=== PATIENT | male | born 1950 | race Two or more races ===

== ENCOUNTER 2025-05-28 09:58 | Inpatient (IN) | payer MEDICARE, MEDICAID, SELFPAY ==
[2025-05-28] VITALS (10 sets, daily range): BP systolic 164–189; BP diastolic 84–105; PULSE 63–78; RESP 16–97; TEMP 36.6–37; O2SAT 95–99; BMI 22.1
--- NOTE | 2025-05-28 10:04 | EKG_ITS ---
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
--- NOTE | 2025-05-28 10:59 | XR_ITS ---
Examination: CT brain head without contrast. 2-D sagittal coronal reconstructions Date and time of exam:May 28, 2025 1125 hours Comparison July 22, 2024 INDICATIONS: Stroke history 24 hours ago, generalized weakness beginning 4 hours ago CTDI: vol (mGy):48.7 DLP: (mGycm):1025 Technique: Multiple CT axial sections of the brain have been obtained, 5 mm slice thickness. Contrast has not been administered. 2-D sagittal, coronal reconstructions have been obtained Low dose protocols were performed. One or more of the following dose reduction techniques were used; automated exposure control, adjustment of the mA and/or KV according to patient size, use of iterative reconstruction technique. Findings: No significant ventricular enlargement. Shunt stable position Prominent venous channels in the subarachnoid space Large area of encephalomalacia in the left temporal lobe with adjacent craniotomy defect, aneurysm clip and presumed embolization material Intra-axial or extra-axial hemorrhage density is not seen. No mass effect or midline shift Basal cisterns are not remarkable. Fourth ventricle is midline. Impression: Extensive chronic changes again noted No interval hemorrhage or mass effect
--- NOTE | 2025-05-28 10:59 | XR_ITS ---
Examination: CTA carotids with intravenous contrast CTA brain, head with intravenous contrast. 2-D sagittal, coronal reconstructions. 3-D reconstructions. Exam date and time: May 28, 2025 1535 hours INDICATIONS: Increasing dizziness and falls 3 weeks, confusion, history ventricular peritoneal shunts CTDI: vol (mGy) 11.5 DLP: (mGycm) 479 Technique: Multiple CTA axial brain, head carotid images post intravenous contrast injection 75 cc, Isovue-370. 2-D sagittal, coronal reconstructions. 3-D reconstructions, 3-D post processing including vascular maximum intensity projection images. Low dose protocols were performed. One or more of the following dose reduction techniques were used; automated exposure control, adjustment of the mA and/or KV according to patient size, use of iterative reconstruction technique. Findings: Multiple thyroid nodules, the largest in the left lobe 17 mm No significant common carotid carotid bifurcation or internal carotid artery stenoses Dominant right vertebral artery Left vertebral artery is small but no critical stenoses No significant filling of the intracranial portion of the left vertebral artery The basilar artery and posterior cerebral branches fill with no occlusions Juxtasellar supraclinoid portions internal carotid arteries fill as well as M1 segments and middle cerebral artery vessels Anterior cerebral arteries demonstrate no occlusions IMPRESSION: No significant carotid artery stenoses in the neck Left vertebral artery is atretic and does not fill in the intracranial portion of its course, recommend carotid vertebral Doppler sonography follow-up to assess for retrograde flow in the left vertebral artery Basilar artery posterior cerebral branches, middle cerebral and anterior cerebral arteries demonstrate no large vessel occlusions or thrombus
--- NOTE | 2025-05-28 11:01 | PD.EDRME ---
Rapid Medical Screening Exam E Arrival date/time: 05/28/25 09:58 Chief Complaint: General Adult/Misc Complain Vital signs: Vital Signs Temperature 98.6 F 05/28/25 10:36 Pulse Rate 78 05/28/25 10:36 Respiratory Rate 18 05/28/25 10:36 Blood Pressure 171/102 H 05/28/25 10:36 Pulse Oximetry (%) 98 05/28/25 10:36 Oxygen Delivery Method Room Air 05/28/25 10:36 E Narrative: Patient is a 74-year-old male with medical history notable for prior stroke, prior stent placed on his neck vessel, has an emergency primary concerns for weakness, syncopal episode, and forgetting things over the last few weeks. Denies chest pain fevers chills nausea vomiting abdominal pain dysuria hematuria melena bloody stools
[2025-05-28 11:52] LABS: Basophils # (Auto) 0.0 Thou/mm3 (0.0-0.2); Basophils % (Auto) 0 % (0-2.5); Eosinophils # (Auto) 0.0 Thou/mm3 (0.0-0.5); Eosinophils % (Auto) 0 % (0-10); Hematocrit 48.8 % (41.0-53.0); Hemoglobin 17.2 g/dL (13.5-16.0); Immature Granulocytes Auto 0.03 Thou/mm3 (0.00-0.00); Lymphocytes # (Auto) 0.9 Thou/mm3 (1.0-4.8); Lymphocytes % (Auto) 9 % (10-50); Mean Corpuscular HGB Conc 35.2 g/dl (31.0-37.0); Mean Corpuscular Hemoglobin 30.2 pg (25.0-35.0); Mean Corpuscular Volume 86 fL (80-100); Monocytes # (Auto) 0.6 Thou/mm3 (0.0-0.8); Monocytes % (Auto) 7 % (0-12); Neutrophils # (Auto) 8.0 Thou/mm3 (1.8-7.7); Neutrophils % (Auto) 83 % (37-80); Nucleated Red Blood Cell # 0.00 Thou/mm3 (0.00-0.00); Nucleated Red Blood Cell % 0 /100 WBC (0); Platelet Count 181 Thou/mm3 (140-440); RDW Standard Deviation 41.9 fL (35.1-43.9); Red Blood Count 5.69 Miln/mm3 (4.50-5.90); White Blood Count 9.6 Thou/mm3 (3.8-10.6)
[2025-05-28 12:08] LABS: Alanine Aminotransferase 16 U/L (10-49); Albumin, Serum 4.9 gm/dL (3.4-4.8); Albumin/Globulin Ratio 1.8 (1.2-2.2); Alkaline Phosphatase 85 U/L (46-116); Anion Gap 12 (7-16); Aspartate Amino Transferase 17 U/L (0-34); BUN/Creatinine Ratio 7 Ratio (12-20); Bilirubin,Total 2.1 mg/dL (0.3-1.2); Blood Urea Nitrogen 8 mg/dL (9-23); Calcium 10.2 mg/dL (8.3-10.6); Calcium (Corrected) 10.2 mg/dL (8.5-10.1); Carbon Dioxide 28.0 mMol/L (20.0-31.0); Chloride 102 mMol/L (98-107); Creatinine (Component) 1.1 mg/dL (0.6-1.3); Estimated Creatinine Clearance 57.6 mL/min (>60); Globulin 2.8 gm/dL (2.3-3.5); Glucose 98 mg/dL (74-106); Osmolality,Calculated 281 (275-295); Potassium 3.9 mMol/L (3.4-5.1); Sodium 142 mMol/L (136-145); Total Protein 7.7 gm/dL (5.7-8.2); Troponin I 0.021 ng/mL (0.0-0.045); eGFR > 60 See Note
[2025-05-28 12:21] LABS: INR 1.0 (0.9-1.3); Prothrombin Time 11.2 Seconds (9.0-12.2)
[2025-05-28 13:02] LABS: Collection Type, Urine Clean Catch; Squamous Epithelial Cell,Urine 0 /hpf (0-5)
[2025-05-28 13:24] LABS: Bilirubin,Urine Negative (Negative); Blood,Urine Negative (Negative); Clarity,Urine Clear (Clear/Hazy); Color,Urine Yellow (Lt Yel-Yel); Culture Indicated,Urine Not Indicated; Glucose, Urine Negative (Negative); Ketones,Urine Negative (Negative); Leukocyte Esterase,Urine Negative (Negative); Nitrite,Urine Negative (Negative); PH,Urine 6.0 (5.0-7.0); Protein,Urine 1+ (Neg - Trace); RBC,Urine 2 /hpf (0-3); Specific Gravity,Urine 1.028 (1.001-1.035); Urobilinogen,Urine 2.0 mg/dL (0.0-1.0); WBC,Urine 2 /hpf (0-5)
--- NOTE | 2025-05-28 14:21 | EDNOTE_ITS ---
ED Weakness RME/HPI General Chief complaint: General [facility] Complain Stated complaint: NOT EATING x 4 DAYS, RIGHT LEG NOT WORKING Arrival date/time: 05/28/25 09:58 Limitations: no limitations RME / HPI RME / HPI Narrative: DR. RICHARD FREITAS ED EVALUATION: 74-year-old male with past medical history of two prior strokes in the 1989? 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 On Saturday, his right leg gave out, causing a fall. Prior to the fall, he had noticed some dragging of the right leg, but symptoms have since worsened, and he is now unable to ambulate without assistance. Since the fall, his nephew has also o bserved increased confusion, decreased appetite, and significant weight loss of approximately 25?30 pounds over the past three years. The patient denies chest pain, fevers, chills, nausea, vomiting, abdominal pain, dysuria, hematuria, melena, or bloody stools. No headaches or facial droop reported. Related Data Home Medications ?Medication ?Instructions ?Recorded ?Confirmed atorvastatin 40 mg tablet 40 mg PO QDAY 05/30/2305/30 gabapentin 600 mg tablet 600 mg PO BID 05/30/2305/30 metoprolol succinate 50 mg 50 mg PO QDAY 05/30/2305/08 tablet,extended release 24 hr Allergies Allergy/AdvReac Type Severity Reaction Status Date / Time No Known Allergies Allergy Verified 05/28/25 10:02 Review of Systems Review of Systems Systems Reviewed: All systems reviewed, normal except as documented Past Medical History Past Medical History NEUROLOGIC: Positive Neurological Disorders (Aneurysm) and Cerebrovascular Accident CARDIAC: Positive Hypertension Social History SMOKING STATUS: Never smoker SUBSTANCE USE: does not use and marijuana ALCOHOL: Never ED Exam General Limitations: Present no limitations General appearance: Present alert and in no apparent distress Head Head exam: Present atraumatic, normocephalic and normal inspection Eye Eye exam: Present normal appearance, PERRL and EOMI ENT ENT exam: Present normal exam, normal oropharynx and mucous membranes moist Neck Neck exam: Present normal inspection, full ROM and trachea midline Chest Chest inspection: Present normal inspection and symmetric chest wall rise Respiratory Respiratory exam: Present normal lung sounds bilaterally Cardiovascular Cardiovascular exam: Present regular rate, normal rhythm and normal heart sounds Abdominal Exam Abdominal exam: Present soft and normal bowel sounds Extremities Exam Extremities exam: Present normal inspection and full ROM Back Exam Back exam: Present normal inspection and full ROM Neurological Exam Neurological exam: Present alert, oriented X3 and other (inability to dorsiflex right foot) Expanded Neurological Exam Motor strength - LUE: 5/5 Motor strength - RUE: 4/5 Motor strength - LLE: 5/5 Motor strength - RLE: 3/5 Psychiatric Psychiatric exam: Present normal affect and normal mood Skin Skin exam: Present warm, dry, intact and normal color Course Course Course Narrative: Patient is a 74-year-old male with history of hypercholesterolemia, hypertensi on, 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 Patient has required assistance to ambulate for the past 4 days. Patient's exam was notable for right lower extremity weakness and mild confusion. Stroke workup was initiated including CT head and CTA head and neck. CTA head and neck showed: No significant carotid artery stenoses in the neck. Left vertebral artery is atretic and does not fill in the intracranial portion of its course, recommend carotid vertebral Doppler sonography follow-up to assess for retrograde flow in the left vertebral artery. Basilar artery post erior cerebral branches, middle cerebral and anterior cerebral arteries demonstrate no large vessel occlusions or thrombus My read of the CT non-con head: No bleed. Blood work was basically normal save for mild hypokalemia. The remainder of the workup was reassuring. Patient's vital signs stayed stable and normal throughout safe for some mild hypertension. I spoke with the resident for Dr. Ferro and the team came down and evaluated the patient. They requested a telemetry neuro consult. I ordered that and calls were made, however care of the patient was turned over to Dr. No pending that eval. Quality Measures none Orders Category Date Time Status CT Screening NOW Care 05/28/25 11:00 Active EKG (ED ONLY) *Do not use* NOW Care 05/28/25 10:04 Completed MRI Screening NOW Care 05/28/25 20:10 Active NIH Stroke Scale now Care 05/28/25 17:24 Active Consult to Neurology / Tele-Neurology Routine Cons 05/28/25 17:[address] angio carotid w head w Stat Exams 05/28/25 10:[address] head/brain wo con Stat Exams 05/28/25 10:59 Completed EKG (ED Only) Stat Exams 05/28/25 10:04 Draft MR head/brain wo con Urgent Exams 05/28/25 Ordered Bilirubin,Direct Routine Lab 05/28/25 21:10 Completed CBC Stat Lab 05/28/25 11:30 Completed CMP [Comprehensive Metabolic Panel] Stat Lab 05/28/25 11:30 Completed PT [Prothrombin Time with INR] Stat Lab 05/28/25 11:30 Completed Troponin I Stat Lab 05/28/25 11:30 Completed UA, C/S IF [Urinalysis, C/S if Indicated] Stat Lab 05/28/25 12:45 Completed Aspirin Chew Med 05/28/25 20:10 Discontinued 81 mg PO X1 ONE hydrALAZINE INJ [Apresoline Inj] Med 05/28/25 15:24 Discontinued 10 mg IVP X1 ONE Vital Signs Vital signs: Vital Signs Temperature 98.6 F 05/28/25 10:36 Pulse Rate 78 05/28/25 10:36 Respiratory Rate 18 05/28/25 10:36 Blood Pressure 171/102 H 05/28/25 10:36 Pulse Oximetry (%) 98 05/28/25 10:36 Oxygen Delivery Method Room Air 05/28/25 10:36 Weakness MDM Narrative MDM Narrative:: I, Bozena Gutiérrez, am scribing for and in the presence of Dr. Pollack. Patient data External records reviewed:: [facility] previous records Clinical information provided by:: patient and family (nephew) Social determinants that could affect healthcare access:: none Patient has the following chronic illnesses:: two prior strokes in the 90?s without residual deficits, a stent placed in the neck vessel, hypertension, hyperlipidemia, and a shunt placed in [place] How is presenting disease/condition affected by chronic disease/condition?: exacerbated by Evaluation data The following diagnostics were reviewed and interpreted by me:: lab results, radiology exam(s) and EKG tracing(s) (My interpretation: EKG performed at xx hours, normal sinus rhythm, rate 76, left axis deviation, Q waves in lead 3 and AVF, no ectopy, no STEMI) Lab and/or radiology exams considered but not ordered:: none Interpretation Summary: Procedure(s): CT head/brain wo con Accession Number(s): [id number] cc: Bud Hutchison MD; Jonna Souza NP; Sofiya Hutchinsno MD~ Examination: CT brain head without contrast. 2-D sagittal coronal reconstructions Date and time of exam:May 28, 2025 1125 hours Comparison July 22, 2024 INDICATIONS: Stroke history 24 hours ago, generalized weakness beginning 4 hours ago CTDI: vol (mGy):48.7 DLP: (mGycm):1025 Technique: Multiple CT axial sections of the brain have been obtained, 5 mm slice thickness. Contrast has not been administered. 2-D sagittal, coronal reconstructions have been obtained Low dose protocols were performed. One or more of the following dose reduction techniques were used; automated exposure control, adjustment of the mA and/or KV according to patient size, use of iterative reconstruction technique. Findings: No significant ventricular enlargement. Shunt stable position Prominent venous channels in the subarachnoid space Large area of encephalomalacia in the left temporal lobe with adjacent craniotomy defect, aneurysm clip and presumed embolization material Intra-axial or extra-axial hemorrhage density is not seen. No mass effect or midline shift Basal cisterns are not remarkable. Fourth ventricle is midline. Impression: Extensive chronic changes again noted No interval hemorrhage or mass effect Dictated By: Bud Hutchison MD Procedure(s): CT angio carotid w head w Accession Number(s): [id number] cc: Bud Hutchison MD; Jonna Souza NP; Sofiya Hutchinson MD~ Examination: CTA carotids with intravenous contrast CTA brain, head with intravenous contrast. 2-D sagittal, coronal reconstructions. 3-D reconstructions. Exam date and time: May 28, 2025 1535 hours INDICATIONS: Increasing dizziness and falls 3 weeks, confusion, history ventricular peritoneal shunts CTDI: vol (mGy) 11.5 DLP: (mGycm) 479 Technique: Multiple CTA axial brain, head carotid images post intravenous contrast injection 75 cc, Isovue-370. 2-D sagittal, coronal reconstructions. 3-D reconstructions, 3-D post processing including vascular maximum intensity projection images. Low dose protocols were performed. One or more of the following dose reduction techniques were used; automated exposure control, adjustment of the mA and/or KV according to patient size, use of iterative reconstruction technique. Findings: Multiple thyroid nodules, the largest in the left lobe 17 mm No significant common carotid carotid bifurcation or internal carotid artery stenoses Dominant right vertebral artery Left vertebral artery is small but no critical stenoses No significant filling of the intracranial portion of the left vertebral artery The basilar artery and posterior cerebral branches fill with no occlusions Juxtasellar supraclinoid portions internal carotid arteries fill as well as M1 segments and middle cerebral artery vessels Anterior cerebral arteries demonstrate no occlusions IMPRESSION: No significant carotid artery stenoses in the neck Left vertebral artery is atretic and does not fill in the intracranial portion of its course, recommend carotid vertebral Doppler sonography follow-up to assess for retrograde flow in the left vertebral artery Basilar artery posterior cerebral branches, middle cerebral and anterior cerebral arteries demonstrate no large vessel occlusions or thrombus Dictated By: Bud Hutchison MD Medications / Prescriptions Medications or Prescriptions considered but not ordered:: none Medication administrations:: Medication Administration History Acetaminophen (Acetaminophen 325 Mg Tablet) 650 mg PO Q6H PRN PRN Reason: Fever >100.3 or mild pain 1-3 Stop: 06/27/25 21:08 Aspirin (Aspirin Ec 81 Mg Tabec) 81 mg PO QDAY GLORIA Stop: 06/28/25 08:59 Atorvastatin Calcium (Atorvastatin Calcium 20 Mg Tablet) 40 mg PO HS GLORIA Stop: 06/28/25 20:59 Famotidine (Famotidine 20 Mg Tablet) 20 mg PO BID GLORIA Stop: 06/28/25 08:59 Heparin Sodium (Porcine) (Heparin Sod Inj 5000 Unit/Ml Vial) 5,000 unit SC Q12HR GLORIA Stop: 06/12/25 08:59 Sodium Chloride (Ns) 1,000 mls @ 70 mls/hr IV .[id number] ONE Stop: 05/29/25 11:46 Last Admin: 05/28/25 22:24 Dose: 70 mls/hr Documented By: HARRIS Labetalol HCl (Labetalol Inj 5 Mg/Ml Vial 20 Ml) 10 mg IVP Q6HR PRN PRN Reason: Hypertension Stop: 06/27/25 21:18 Ondansetron HCl (Ondansetron Inj 2 Mg/Ml Inj 2 Ml) 4 mg IVP Q6H PRN; Protocol PRN Reason: NAUSEA OR VOMITING Stop: 06/27/25 21:08 Sennosides (Senna Tablet) 1 tab PO QDAY GLORIA; Protocol Stop: 06/28/25 08:59 Discontinued Medications Aspirin (Aspirin 81 Mg Chew) 81 mg PO X1 ONE Stop: 05/28/25 20:11 Last Admin: 05/28/25 20:17 Dose: 81 mg Documented By: HARRIS Hydralazine HCl (Hydralazine Inj 20 Mg/Ml Vial) 10 mg IVP X1 ONE Stop: 05/28/25 15:25 Last Admin: 05/28/25 16:07 Dose: 10 mg Documented By: HARRIS see above if any Consultations Consultation(s) initiated? (list below): Yes Consultation #1 (Physician, Specialty, Details): Discussed test HPI, PMHx, lab, radiology results and/or management with resident working with the hospitalist. They are requesting a neurology consult. Time: 17:00 Diagnosis Weakness Differential Diagnosis: other (Acute ischemic stroke, transient ischemic attack, and shunt malfunction or other intracranial pathology.) Most likely diagnosis given after review of the tests above:: CVA Admission Indicated Admission indicated?: indicated Admission Request Was there a request for admission?: Yes Admission Attestation Admission request attestation: Discussed case with [] from Hospitalist service regarding admission. Discussed patients ED course, exam findings, labs, and radiology results. The Hospitalist [agrees,declines] to accept the patient for admission. Disposition Plan Disposition Plan: other (specify) (Patient signed out to Dr. No, pending a neurology consult for possible admission.) Critical Care Time Critical Care Time Critical Care Time: Yes Total Critical Care Time (min.): 40 Attestation: The high probability of sudden, clinically significant deterioration in the patient?s condition required the highest level of my preparedness to intervene urgently. The services I provided to this patient were to treat and/or prevent clinically significant deterioration. Services included the following: chart data review, reviewing nursing notes and/or old charts, documentation time, labor relations consultant collaboration regarding findings and treatment options, medication orders and management, direct patient care, vital sign assessments and ordering, interpreting and reviewing diagnostic studies and lab tests. Aggregate critical care time includes only time during which I was engaged in work directly related to the patient?s care, as described above, whether at bedside or elsewhere in the Emergency Department. It did not include time spent performing other reported procedures or the services of residents, students, nurses or physician assistants. Discharge Plan Problem List Clinical Impression: CVA (cerebral vascular accident)
[2025-05-28] MEDS: hydrALAZINE INJ 20 MG/ML VIAL 10 MG IVP (16:07)
--- NOTE | 2025-05-28 18:30 | PD.EDADDENDU ---
Emergency Room Addendum <Celia Rowe - Last Filed: 05/28/25 20:34> Addendum Narrative: 1800: Care assumed from Dr. Pollack (emergency physician). Past medical, surgical, social and family history reviewed. Vitals and home medications reviewed. Results and treatment plan discussed. I will assume the care of the patient at this time and will follow the patient, pending neurology consult for admission. The following addendum documentation note is intended to reflect any pending information, findings, or radiology results not included in the patient?s initial chart by the previous shift scribe. 2012: Telle-neurologist made aware of the patient?s HPI, PMHx, lab and/or radiology results. Discussed treatment plan. Will consult an admission to the hospitalist. 2030: made aware of the patient?s HPI, PMHx, lab and/or radiology results. Treatment plan was discussed. Will admit for further evaluation and management. Accepts patient for admission. <Joaquín Tan DO [place] - Last Filed: 05/28/25 20:34> Addendum Narrative: 1800: Care assumed from Dr. Pollack (emergency physician). Past medical, surgical, social and family history reviewed. Vitals and home medications reviewed. Results and treatment plan discussed. I will assume the care of the patient at this time and will follow the patient, pending neurology consult for admission. The following addendum documentation note is intended to reflect any pending information, findings, or radiology results not included in the patient?s initial chart by the previous shift scribe. 2012: Tellkranthi-neurologist made aware of the patient?s HPI, PMHx, lab and/or radiology results. Discussed treatment plan. Will consult an admission to the hospitalist. made aware of the patient?s HPI, PMHx, lab and/or radiology results. Treatment plan was discussed. Will admit for further evaluation and management. Accepts patient for admission. Patient was signed out to me awaiting teleneuro consult. Teleneuro consult was obtained with Dr. Silver who does not believe this to be a shunt problem. He asked for the patient to be admitted to the hospital and undergo MRI in the morning. This was conveyed to the admitting team.
[2025-05-28] MEDS: ASPIRIN 81 MG CHEW PO (20:17)
--- NOTE | 2025-05-28 20:19 | PD.TNEURO ---
Tele Neuro Consultation Consultation Date 05/28/25 Most Recent Vital Signs Last Vital Signs Temp 97.9 F 05/28/25 17:50 Pulse 72 05/28/25 20:03 Resp 19 05/28/25 20:03 BP 175/94 H 05/28/25 20:03 Pulse Ox 98 05/28/25 20:03 O2 Del Method Room Air 05/28/25 20:03 Laboratory-Coagulation Panel PT 11.2 Seconds (9.0-12.2) 05/28/25 11:30 INR 1.0 (0.9-1.3) 05/28/25 11:30 Consultation Narrative [facility] TeleNeurology Consult Services Stat Consult Patient Name:???Bud Gonzales Date of :???1950 Identification Number:??? 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 From a Neurology perspective, principal concern would involve either an acute ischemic stroke to the L hemisphere; however, cannot exclude possibility of a recrudescence dany patient's chronic stroke symptoms in context of decreased oral intake since fall. Moving forward, recommend empirically treating as an acute ischemic stroke, with admission for stroke workup alongside metabolic and infectious workup. Of note, while an issue with patient's LIQUID WASTE TREATMENT PLANT OPERATOR shunt is possible, the fact that patient has no evidence of hydrocephalus or enlargement of his L lateral ventricle on CTH, with imaging grossly unchanged as compared to August 2024 CTH, makes likelihood of a LIQUID WASTE T[employer]ATMENT [employer] OPERATOR shunt malfunction extremely low. In the end, would recommend outpatient Neurosurgery follow up post-discharge for future shunt management. Recommendations: Our recommendations are outlined below. Diagnostic Studies :MRI head without contrast Infectious and metabolic workup per primary team Laboratory Studies :Lipid panel, TSH, A1C, B12/Folate levels Antithrombotic Medication :Aspirin 81 mg PO daily Statins for LDL goal less than 70 Anticoagulant Medication :Not indicated Nursing Recommendations :IV Fluids, avoid dextrose containing fluids, Maintain euglycemia Neuro checks q4 hrs x 24 hrs and then per shift Head of bed 30 degrees Continue with Telemetry Consultations :Recommend Speech therapy if failed dysphagia screen Physical therapy/Occupational therapy Inpatient rehab if recommended by physical/occupational therapy DVT Prophylaxis :Choice of Primary Team Disposition :Neurology will follow Miscellaneous :Outpatient Neurosurgery follow up in 4-8 weeks for further monitoring of LIQUID W[employer]E T[employer]AT[employer] OPERATOR shunt Metrics: Dispatch Time: 05/28/2025 17:54:46 Callback Response Time: 05/28/2025 17:55:11 Primary Provider Notified of Diagnostic Impression and Management Plan on: 05/28/2025 20:05:05 CT HEAD: I personally reviewed all the CT images that were available to me and it showed:?a large area of encephalomalacia in the L temporal region consistent with a chronic stroke, with an overlying craniotomy defect as well as a L to R LIQUID W[employer]E T[employer]ATMENT [employer] OPERATOR shunt ImagingCTA Head/neck: 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 Per staff and per family, patient experienced a fall four days prior, after which he was noted to have an inability to ambulate without the assistance of family, with significant unsteadiness and worsening weakness of his R leg as well as more prominent R facial weakness. Per patient, admits to weakness and states that prior to Saturday, he was able to ambulate well with a walker. Denies any recent infectious or illnesses. Of note, patient states that he stopped taking all medications appx one year prior. Past Medical History: ?Hypertension ?Hyperlipidemia ?Stroke ?There is no history of Diabetes Mellitus ?There is no history of Atrial Fibrillation Medications: No Anticoagulant use? No Antiplatelet use Reviewed EMR for current medications Allergies:? Reviewed Social History: Drug Use: No Family History: There is no family history of premature cerebrovascular disease pertinent to this consultation ROS : 14 Points Review of Systems was performed and was negative except mentioned in HPI. Past Surgical History: There Is No Surgical History Contributory To Today?s Visit Examination: BP(164/84),?Pulse(68), 1A: Level of Consciousness - Alert; keenly responsive?+ 0 1B: Ask Month and Age - Both Questions Right?+ 0 1C: Blink Eyes & Squeeze Hands - Performs Both Tasks?+ 0 2: Test Horizontal Extraocular Movements - Normal?+ 0 3: Test Visual Mueller - Partial Hemianopia?+ 1 4: Test Facial Palsy (Use Grimace if Obtunded) - Partial paralysis (lower face)?+ 2 5A: Test Left Arm Motor Drift - No Drift for 10 Seconds?+ 0 5B: Test Right Arm Motor Drift - Drift, but doesn't hit bed?+ 1 6A: Test Left Leg Motor Drift - No Drift for 5 Seconds?+ 0 6B: Test Right Leg Motor Drift - Drift, but doesn't hit bed?+ 1 7: Test Limb Ataxia (FNF/Heel-Veliz) - No Ataxia?+ 0 8: Test Sensation - Normal; No sensory loss?+ 0 9: Test Language/Aphasia - Normal; No aphasia?+ 0 10: Test Dysarthria - Mild-Moderate Dysarthria: Slurring but can be understood?+ 1 11: Test Extinction/Inattention - No abnormality?+ 0 NIHSS Score:?6 NIHSS Free Text :?partial R superior hemianopia Spoke with :?Dr No This consult was conducted in real time using interactive audio and video technology. Patient was informed of the technology being used for this visit and agreed to proceed. Patient located in hospital and provider located at home/office setting. Patient is being evaluated for possible acute neurologic impairment and high probability of imminent or life - threatening deterioration.I spent total of 30 minutes providing care to this patient, including time for face to face visit via telemedicine, review of medical records, imaging studies and discussion of findings with providers, the patient and / or family. Dr Mansoor Silver [facility] For Inpatient follow-up with [facility] physician please call [facility] at . As we are not an outpatient service for any post hospital discharge needs please contact the hospital for assistance. If you have any questions for the [facility] physicians or need to reconsult for clinical or diagnostic changes please contact us via [facility] at . Signature :Bri Silver
--- NOTE | 2025-05-28 21:14 | XR_ITS ---
Examination: Abdomen sonogram, Limited Date and time of exam: May 28, 2025, 10 0 2:00 PM. INDICATIONS: Elevated total bilirubin on laboratory examination today Technique: Real-time roberts scale transabdominal sonographic images of the upper abdomen obtained. Findings: Negative for gallstones. Gallbladder wall 0.37 cm no edema Common bile duct 0.2 cm Pancreas obscured by bowel gas Liver 14.5 cm lobular contour and no focal liver lesions Normal hepatopedal portal venous flow Patent IVC. IMPRESSION: Negative for cholelithiasis Negative for cholecystitis Liver normal size lobular contour, suspicious for primary hepatocellular disease.
--- NOTE | 2025-05-28 21:17 | ECHO_ITS ---
Transthoracic Echo Report Ht (in): 69 Wt (lb): 150 Exam Location: Echo Lab Status: Emergency Box Strapper: Elda Medina Indications: Procedure Performed: BP: 149 / 89 HR: 65 MEASUREMENTS (Male / Female) Normal Values 2D ECHO LV Diastolic Diameter PLAX 3.8 cm 4.2 - 5.9 / 3.9 - 5.3 cm LV Systolic Diameter PLAX 2.5 cm IVS Diastolic Thickness 1.2 cm 0.6 - 1.0 / 0.6 - 0.9 cm LVPW Diastolic Thickness 1.0 cm 0.6 - 1.0 / 0.6 - 0.9 cm LV Relative Wall Thickness 0.6 LVOT Diameter 1.8 cm Ascending Aorta Diameter 3.5 cm M-MODE AV Cusp Separation MM 2.1 cm DOPPLER AV Peak Velocity 93.3 cm/s AV Peak Gradient 3.5 mmHg AV Mean Gradient 2.0 mmHg AV Velocity Time Integral 18.1 cm LVOT Peak Velocity 82.0 cm/s LVOT Peak Gradient 2.7 mmHg LVOT Velocity Time Integral 19.4 cm LVOT Cardiac Index 1763.3 cm?/min?m? AV Area Cont Eq vti 2.7 cm? AV Area Cont Eq pk 2.2 cm? MV Area PHT 2.7 cm? Mitral E Point Velocity 47.0 cm/s Mitral A Point Velocity 90.7 cm/s Mitral E to A Ratio 0.5 LV E' Lateral Velocity 5.7 cm/s Mitral E to LV E' Lateral Ratio 8.3 LV E' Septal Velocity 6.2 cm/s Mitral E to LV E' Septal Ratio 7.6 TR Peak Velocity 193.0 cm/s TR Peak Gradient 14.9 mmHg PV Peak Velocity 68.8 cm/s PV Peak Gradient 1.9 mmHg FINDINGS Left Ventricle Normal left ventricular size, wall thickness, systolic function with no obvious regional wall motion abnormalities.Grade I diastolic dysfunction. The ejection fraction is visually estimated at 55-60 %. Right Ventricle The right ventricle is normal in size and systolic function. Left Atrium The left atrium is normal by two-dimensional, color flow and Doppler imaging with no structural abnormalities, no thrombus formation present. Right Atrium The right atrium is normal by two-dimensional imaging, color flow and Doppler imaging with no structural abnormalities, no thrombus formation present. Atrial Septum No vsta-qu-hflil shunt demonstrated by agitated saline injection. Aorta Ascending aorta mildly dilated at 3.5cm. Mitral Valve Mild Mitral annular calcification. Trace to mild mitral regurgitation. Aortic Valve Aortic valve sclerosis without stenosis. Mild AR Tricuspid Valve The tricuspid valve is normal by two-dimensional, color flow and Doppler interrogation. There is mild tricuspid valve regurgitation. Pulmonic Valve The pulmonic valve is not well visualized. There is no significant pulmonic valve regurgitation. Vessels The pulmonary artery appears normal. The inferior vena cava pulmonary and hepatic veins appear normal. Pericardium The pericardium is normal by two-dimensional imaging. There is no significant pericardial effusion. CONCLUSIONS Indication: stroke rule out w/ bubble study Negative bubble study but suboptimal images. Consider PARTHA if high index of suspicion Normal LV function and size. EF estimated 55-60%. Grade I diastolic dysfunction. Normal RV function and size. Mild dilated ascending aorta measuring 3.5cm Mild MAC. Trace MR. Mild Aortic valve sclerosis. Mild AI and Mild TR No pericardial effusion. Salty Hernandez (Electronically Signed) Final Date: 30 May 2025 12:55
[2025-05-28 21:52] LABS: Bilirubin,Direct 0.6 mg/dL (0.0-0.3)
[2025-05-28] MEDS: SODIUM CHLORIDE 0.9% 1000 ML 1,000 ML 70 ML IV (22:24)
--- NOTE | 2025-05-28 23:29 | PD.RESHP ---
Documentation for date of: 05/28/25 HPI History of Present Illness History of present illness: CC: right lower extremity weakness Patient is a 74-year-old male with a past medical history of hypertension, hyperlipidemia, history of left hemispheric stroke (presumed hemorrhagic in setting of aneurysm clip) 1990s with subsequent craniotomy and LBBB 2R SIDING INSTALLER shunt placement with no residual side effects defects, 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 Patient presented with a past medical history of right leg weakness after experiencing a mechanical fall at home. Patient stated he experienced a mechanical fall at home approximately 4 days ago after feeling dizzy and tripping on cement. Denied loss of consciousness patient. Patient complaining of calf pain on right lower extremity. Denied seizure-like activity. Denied chills or fevers. Denied emesis. Denied diarrhea. Denied chest pain or shortness of breath. ER course Vitals: BP 171/102, heart rate 78, respiratory rate 18, temperature 98.6, SpO2 98% RA WBC hemoglobin 17.2, hematocrit 48.8 platelet count 181 CMP: NA 142, potassium 3.9, chloride 102, bicarb 28 anion gap 12, creatinine 1.1 glucose, T. bili 2.1 and direct bilirubin 0.6 Trop[address] 0[address] Head: Shunt stable position, Prominent venous channels in the subarachnoid space. Large area of encephalomalacia in the left temporal lobe with adjacen craniotomy defect, aneurysm clip and presumed embolization material-->Chronic Changes & No hemorrhage CTA Head/Neck: Basilar artery posterior cerebral branches, middle cerebral and anterior cerebral arteries demonstrate no large vessel occlusions or thrombus. Left vertebral artery is atretic and does not fill in the intracranial portion of its course, recommend carotid vertebral Doppler sonography follow-up to assess for retrograde flow in the left vertebral artery-->Per neuro, No significan stenosis of occlusion Tele Neuro consult: rec Aspirin 81 mg only. NIHSS 3 Admitted for lower extremity weakness and mechanical fall, CVA rule out. PMH: Same as above Past Surgical History: Denied surgical history beside craniotomy Past Family History: Unsure of family history Home Medication: Denied home medication Social History: Denied Illicit Drug Use Denied Alcohol Use Never Smoker Allergies: None Code Status: Full Code Review of Systems Review of Systems Narrative Review of Systems: General appearance: NO weight change, NO fatigue, NO weakness, NO fever, NO chills, NO night sweats, No cough Skin: NO rash, NO itching, NO sores, NO moles HEENT: NO Trauma, NO nausea, NO vomiting, NO visual changes, NO blurry vision, NO double vision, NO tinnitus, NO vertigo, NO ear discharge, NO rhinorrhea, NO stuffiness, NO sneezing, NO allergy, NO epistaxis. NO Hoarseness, NO sore throat, NO swollen neck. Cardiac: NO Palpitations, NO dyspnea on exertion, NO orthopnea, NO paroxysmal nocturnal dyspnea, NO edema Respiratory: NO Shortness of Breath, NO Wheezing, NO Cough, NO Sputum, NO hemoptysis GI:NO appetite, NO nausea, NO vomiting, NO dysphagia, NO changes in bowel frequency, NO stool color, NO diarrhea, NO constipation, NO hemetemesis, NO hemorrhoids, NO melena, NO hematechezia, NO abdominal pain, NO jaundice Renal: NO frequency, NO hesitancy, NO urgency, NO hematuria, NO nocturia, NO incontinence MSK: NO muscle weakness, NO gout, NO arthritis, NO muscle stiffness Neuro: NO headaches, NO tremors, YES weakness, NO paralysis, NO seizures, NO loss of consciousness, NO numbness. Hem: NO anemia, NO easy bruising/bleeding, NO petechiae, NO purpura Endo: NO heat/cold intolerance, NO excessive sweating, NO polyuria, NO polydipsia, NO polyphagia, NO thyroid problems, NO diabetes Pysch: NO mood, NO anxiety, NO depression Exam Vital Signs Temp Pulse Resp BP Pulse Ox O2 Del Method 98.2 F 75 16 183/95 H 99 Room Air 05/28/25 21:41 05/28/25 22:45 05/28/25 22:45 05/28/25 21:41 05/28/25 21:41 05/28/25 21:41 Narrative Exam General Appearance: Alert & Oriented X3, well-nourished male who is lying in bed in no acute distress HEENT: Skull symmetrical and atraumatic. Conjunctivae pin and moist. Pupils equal, round, reactive to light and accommodation (PERRL). External ear without lesion or discharge. Straight, nares patient, mucosa pink, no discharge. Cardio: Normal Rate and Rhythm with S1 and S2 heart sounds. No murmurs or extra heart sounds auscultated. No bruits on carotid auscultation. No peripheral edema or cyanosis. Lungs: Symmetric with good expansion. Chest and back non-tender. Breath sounds vesicular without crackles, wheezing or rhonchi Abdomen: Non-tender, Non-distended, Normal Reactive Bowel Sounds Neuro: Alert, cooperative, oriented to person, place, and time. Speech clear. CN grossly intact. Upper motor strength 5/5 and Lower motor strength 5/5. Sensation intact. Results: Labs 05/28/25 11:30 05/28/25 11:30 Labs: Short CBC 05/28/25 Range/Units 11:30 WBC 9.6 (3.8-10.6) Thou/mm3 Hgb 17.2 H (13.5-16.0) g/dL Hct 48.8 (41.0-53.0) % Plt Count 181 (140-440) Thou/mm3 BMP 05/28/25 11:30 Sodium 142 Potassium 3.9 Chloride 102 Carbon Dioxide 28.0 BUN 8 L Creatinine 1.1 Glucose 98 Calcium 10.2 Cardiac Enzymes 05/28/25 Range/Units 11:30 Troponin I 0.021 (0.0-0.045) ng/mL Liver Function 05/28/25 05/28/25 Range/Units 11:30 21:10 Total Bilirubin 2.1 H (0.3-1.2) mg/dL Direct Bilirubin Cancelled 0.6 H AST 17 (0-34) U/L ALT 16 (10-49) U/L Alkaline Phosphatase 85 (46-116) U/L Albumin 4.9 H (3.4-4.8) gm/dL Urine 05/28/25 Range/Units 12:45 Urine Color Yellow (Lt Yel-Yel) Urine Clarity Clear (Clear/Hazy) Urine pH 6.0 (5.0-7.0) Ur Specific [place] 1.028 (1.001-1.035) Urine Protein 1+ A (Neg - Trace) Urine Glucose (UA) Negative (Negative) Quality Measures Quality Measures none Advance care planning discussed with:: patient Medications Home Medications and Allergies Home Medications ?Medication ?Instructions ?Recorded ?Confirmed ?Type atorvastatin 40 mg tablet 40 mg PO QDAY 05/30/23 05/30/23 History gabapentin 600 mg tablet 600 mg PO BID 05/30/23 05/30/23 History metoprolol succinate 50 mg 50 mg PO QDAY 05/30/23 05/30/23 History tablet,extended release 24 hr Allergies Allergy/AdvReac Type Severity Reaction Status Date / Time No Known Allergies Allergy Verified 05/28/25 10:02 Visit Medications Acetaminophen (Acetaminophen 325 Mg Tablet) 650 mg PO Q6H PRN PRN Reason: Fever >100.3 or mild pain 1-3 Stop: 06/27/25 21:08 Aspirin (Aspirin Ec 81 Mg Tabec) 81 mg PO QDAY [facility] Stop: 06/28/25 08:59 Atorvastatin Calcium (Atorvastatin Calcium 20 Mg Tablet) 40 mg PO HS GLORIA Stop: 06/28/25 20:59 Famotidine (Famotidine 20 Mg Tablet) 20 mg PO BID GLORIA Stop: 06/28/25 08:59 Sodium Chloride (Ns) 1,000 mls @ 70 mls/hr IV .[id number] ONE Stop: 05/29/25 11:46 Last Admin: 05/28/25 22:24 Dose: 70 mls/hr Labetalol HCl (Labetalol Inj 5 Mg/Ml Vial 20 Ml) 10 mg IVP Q6HR PRN PRN Reason: Hypertension Stop: 06/27/25 21:18 Ondansetron HCl (Ondansetron Inj 2 Mg/Ml Inj 2 Ml) 4 mg IVP Q6H PRN; Protocol PRN Reason: NAUSEA OR VOMITING Stop: 06/27/25 21:08 Sennosides (Senna Tablet) 1 tab PO QDAY GLORIA; Protocol Stop: 06/28/25 08:59 Discontinued Medications Aspirin (Aspirin 81 Mg Chew) 81 mg PO X1 ONE Stop: 05/28/25 20:11 Last Admin: 05/28/25 20:17 Dose: 81 mg Hydralazine HCl (Hydralazine Inj 20 Mg/Ml Vial) 10 mg IVP X1 ONE Stop: 05/28/25 15:25 Last Admin: 05/28/25 16:07 Dose: 10 mg Assessment & Plan Plan Patient is a 74-year-old male with a past medical history of hypertension, hyperlipidemia, history of left hemispheric stroke (presumed hemorrhagic in setting of aneurysm clip) 1990s with subsequent craniotomy and LBBB 2R SIDING INSTALLER shunt placement with no residual side effects defects, 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 Patient was admitted for lower extremity weakness and mechanical fall, CVA rule out. #Pre-syncope #Vertigo #Mechanical Fall #Lower extremity weakness #CVA, work up Patient complaining of left lower extremity weakness occurring of the last 4 days with his leg just giving out on physical exam no drift and motor strength within normal limits, full sensation. Rule out stroke/TIA vs seizure vs orthostatic vitals given lack of medication compliance. Diagnostics: CT Head: Shunt stable position, Prominent venous channels in the subarachnoid space. Large area of encephalomalacia in the left temporal lobe with adjacen craniotomy defect, aneurysm clip and presumed embolization material-->Chronic Changes & No hemorrhage CTA Head/Neck: Basilar artery posterior cerebral branches, middle cerebral and anterior cerebral arteries demonstrate no large vessel occlusions or thrombus. Left vertebral artery is atretic and does not fill in the intracranial portion of its course, recommend carotid vertebral Doppler sonography follow-up to assess for retrograde flow in the left vertebral artery-->Per neuro, No significan stenosis of occlusion Plan: -MRI brain w/o contrast -EEG -Echo w/ bubble study -permissive HTN -Aspirin 81 mg & Atorvastatin (based on neruo -Neuro Checks -Aspiration Precautions, Head of bed 30 degrees -Bedside swallow screen and evaluation -Euglycemia and avoid Hyperthermia -Acetaminophen PRN -NPO -NS 1 L @ 70 cc -BNP and CBC -A1c -Lipid Panel -TSH -Labetalol PRN, give if SBP >220 or DBP >110 -Neuro consult #Hypertension Patient has a past medical history of hypertension but denies any medicaiton, mechancal fall and dizziness may be secondary to poor blood pressure management. Plan -Medication reconcillication -Allow for permissive HTN-->YELENA/ARBCs after #HLD Patient denied taking atorvastatin. Patient denied any medication Plan -Atorvastatin 40 mg HS -Lipid Panel #Hyperbilirubinemia Patient presented with total bili of 2.1 w/ direct bili 0.6. Patient deneid upper qudarant pain and normal AST/ALT, likely secondary to poor oral intake, per patient history vs liver disease, consider hepa panel vs other lysis of RBC but less likely given normal hgb. Plan -continue to monitor CMP -US Gallbladder #Erythrocytosis Maybe secondary to FAMILIA vs reactive vs REE mutation Plan -continue to monitor Health Maintenance: Disp: Pt is currently admitted to floors for further management of left lower weakness , awaiting MRI FEN: NPO, Famotidine DVT: on subQ heparin 12 hrs Code: Full code - The patient's plan was discussed with attending Dr. Alec Jorge MD PGY2 Internal Medicine Attending Provider Attestation/Addendum I have examined the patient, reviewed labs and imaging findings, discussed the case with the resident(s), and reviewed entered orders. I agree with the plan of care as outlined in this note, with these additional summaries/recommendations: After examination of the patient and review of the clinical data, I feel that this patient needs admission to the hospital for further treatment and evaluation. Patient is a 74-year-old male with history of CVA(likely hemorrhagic) status post craniotomy and SIDING INSTALLER shunt, primary hypertension, hyperlipidemia, and neuropathy presents to [facility] emergency department on 05/28/2025 with chief complaint of right sided weakness. Patient seen at bedside. He has right-sided hemiparesis which started 3 to 4 days ago. NIHSS score of 6. Patient was seen by teleneurology in emergency room. CT head without contrast shows extensive chronic changes including prominent venous channels in the subarachnoid space, large area of encephalomalacia in the left temporal lobe, and aneurysm clip although was negative for interval hemorrhage or mass effect. CTA head and neck did not reveal any LVO or thrombus in bibasilar artery, posterior cerebral branches, and middle cerebral and anterior cerebral arteries. Patient was evaluated by telemetry neurology in the ED. Neurology recommends admission for stroke rule out. Order MRI head without contrast. Risk factor stratification with lipid panel, TSH, A1c, B12/folate levels. Start aspirin 81 mg p.o. daily for antiplatelet therapy. Start Statin with LDL goal less than 70. Neurochecks every 4 hours. Monitor on telemetry. Order echocardiogram with bubble study. Speech therapy and physical therapy referrals. Patient has SIDING INSTALLER shunt and per neurology low suspicion for SIDING INSTALLER shunt malfunction at this time. Recommends outpatient follow-up with neurosurgery in 4 to 8 weeks for further monitoring of the SIDING INSTALLER shunt. Hold home antihypertensives and allow permissive hypertension. Hyperbilirubinemia noted on chemistry panel. Patient has had intermittent hyperbilirubinemia dating back to 2022. Abdominal exam benign. Unclear etiology for hyperbilirubinemia although mostly conjugated. AST, ALT, and alkaline phosphatase within normal limits. If patient develops abdominal symptoms or hyperbilirubinemia worsens we will order abdominal imaging and hepatitis panel. Hold home antihypertensives for now. Patient updated on the plan and in agreement. All questions answered to satisfaction. Please see residents note for additional details and management. Dr. Alec MD
[2025-05-29] VITALS (10 sets, daily range): BP systolic 149–187; BP diastolic 89–108; PULSE 60–80; RESP 16–95; TEMP 36.1–37.1; O2SAT 95–97
--- NOTE | 2025-05-29 02:49 | XR_ITS ---
Examination: Venous duplex lower extremity sonogram, bilateral. Date and time of exam: May 29, 2025, 11:49 AM. Indications: Injury one week ago to the legs, calf pain and leg pain. Technique: Multiple sonographic images of the deep venous system have been obtained. B-mode/2-D grayscale imaging of vascular structures and Doppler spectral analysis (waveforms) and color performed Both legs are examined. Findings: Deep venous systems do not demonstrate abnormal echogenicity. All visualized deep veins exhibit compressibility. All visualized deep veins exhibit augmentation. Impression: Negative for deep vein thrombosis
[2025-05-29 05:21] LABS: Basophils # (Auto) 0.0 Thou/mm3 (0.0-0.2); Basophils % (Auto) 0 % (0-2.5); Eosinophils # (Auto) 0.0 Thou/mm3 (0.0-0.5); Eosinophils % (Auto) 1 % (0-10); Hematocrit 44.8 % (41.0-53.0); Hemoglobin 15.7 g/dL (13.5-16.0); Immature Granulocytes Auto 0.02 Thou/mm3 (0.00-0.00); Lymphocytes # (Auto) 0.7 Thou/mm3 (1.0-4.8); Lymphocytes % (Auto) 9 % (10-50); Mean Corpuscular HGB Conc 35.0 g/dl (31.0-37.0); Mean Corpuscular Hemoglobin 29.8 pg (25.0-35.0); Mean Corpuscular Volume 85 fL (80-100); Monocytes # (Auto) 0.8 Thou/mm3 (0.0-0.8); Monocytes % (Auto) 11 % (0-12); Neutrophils # (Auto) 6.2 Thou/mm3 (1.8-7.7); Neutrophils % (Auto) 79 % (37-80); Nucleated Red Blood Cell # 0.00 Thou/mm3 (0.00-0.00); Nucleated Red Blood Cell % 0 /100 WBC (0); Platelet Count 145 Thou/mm3 (140-440); RDW Standard Deviation 41.1 fL (35.1-43.9); Red Blood Count 5.27 Miln/mm3 (4.50-5.90); White Blood Count 7.9 Thou/mm3 (3.8-10.6)
[2025-05-29 05:41] LABS: Glucose Estimated Average 100 mg/dL (80-131); Hemoglobin A1C 5.1 % Hgb (4.8-6.0)
[2025-05-29 06:06] LABS: Alanine Aminotransferase 11 U/L (10-49); Albumin, Serum 4.1 gm/dL (3.4-4.8); Albumin/Globulin Ratio 1.9 (1.2-2.2); Alkaline Phosphatase 73 U/L (46-116); Anion Gap 13 (7-16); Aspartate Amino Transferase 12 U/L (0-34); BUN/Creatinine Ratio 10 Ratio (12-20); Bilirubin,Total 2.4 mg/dL (0.3-1.2); Blood Urea Nitrogen 8 mg/dL (9-23); Calcium 9.6 mg/dL (8.3-10.6); Calcium (Corrected) 9.6 mg/dL (8.5-10.1); Carbon Dioxide 22.6 mMol/L (20.0-31.0); Cardiac Risk Estimate 4.2 RATIO (4.0-6.7); Chloride 104 mMol/L (98-107); Cholesterol 151 mg/dL (132-200); Creatinine (Component) 0.8 mg/dL (0.6-1.3); Estimated Creatinine Clearance 79.1 mL/min (>60); Globulin 2.2 gm/dL (2.3-3.5); Glucose 97 mg/dL (74-106); HDL Cholesterol 36 mg/dL (40-60); LDL Cholesterol,Calculated 101 mg/dL (0-130); Magnesium 1.9 mg/dL (1.6-2.6); Osmolality,Calculated 277 (275-295); Phosphorous 3.5 mg/dL (2.4-5.1); Potassium 3.2 mMol/L (3.4-5.1); Sodium 140 mMol/L (136-145); Thyroid Stimulating Hormone 0.79 uIU/mL (0.55-4.78); Total Protein 6.3 gm/dL (5.7-8.2); Triglycerides 72 mg/dL (30-150); eGFR > 60 See Note
[2025-05-29] MEDS: HEPARIN SOD INJ 5000 UNIT/ML VIAL SC (08:24)
[2025-05-29] MEDS: ASPIRIN EC 81 MG TABEC PO (08:24)
[2025-05-29] MEDS: FAMOTIDINE 20 MG TABLET PO (08:24)
--- NOTE | 2025-05-29 14:28 | PD.RESPRO ---
Documentation for date of: 05/29/25 Subjective Subjective Interval history: Overnight events: No acute events overnight. Patient admitted overnight. Patient was seen and examined at bedside. AM vitals and labs reviewed. Patient was not in any acute distress. RUE slightly weaker than LUE. Patient states that this is new for him. Slight right facial droop noticed, which is also present when patient smiles. Patient also has RLE weakness slightly worse than LLE, but notes that it has been a chronic issue for him, not new. It is noted that the patient's current story does not match what he has discussed with the night team. Patient endorses a history of seizures, diagnosed at a young age by a neurologist, and was medicated but has been off medications for about 30 years. Patient does not know who his neurologist is, but states that he last visited him about 2 years ago in [place]. Venous doppler LE US negative for DVT. Gallbladder US negative for cholelithiasis, cholecystitis, and liver noted to have lobular contour, suspicious for primary hepatocellular disease. Pending MRI head. Pending recommendations from neurology. Review of systems otherwise negative except for what is mentioned above. Exam Vital Signs Temp Pulse Resp BP Pulse Ox O2 Del Method 98.7 F 80 17 187/98 H 96 Room Air 05/29/25 12:08 05/29/25 12:08 05/29/25 12:08 05/29/25 12:08 05/29/25 12:08 05/29/25 12:08 Narrative Exam Physical Exam: General: Alert, no acute distress. Skin: Warm, dry, intact, no obvious rash. Head: Normocephalic, atraumatic. Eye: Normal conjunctiva, PERRL. Throat: Oral mucosa moist. No obvious lesions in oropharynx. Cardiovascular: Regular rate and rhythm, no murmur, +S1/S2. Respiratory: Lungs are clear to auscultation, respirations unlabored, no crackles, no wheezing. Gastrointestinal: Soft, nontender, non-distended. No guarding or rebound tenderness. Extremities: No edema, no cyanosis, no clubbing. 2+ radial pulse bilaterally, 2+ pedal pulse bilaterally. Neuro: Slight right sided facial droop noted when patient smiles. RUE 4+/5, LUE 5/5, RLE 4+/5, LLE 5/5. Conversant, moving all extremities. No overt cerebellar signs/incoordination. Psychiatric: Cooperative, appropriate affect. Objective Labs 05/29/25 04:43 05/29/25 04:43 Labs: Laboratory Results - last 24 hr 05/28/25 05/28/25 05/29/25 11:30 21:10 04:43 WBC 7.9 RBC 5.27 Hgb 15.7 Hct 44.8 MCV 85 MCH 29.8 MCHC 35.0 RDW Std Deviation 41.1 Plt Count 145 D Neut % (Auto) 79 Lymph % (Auto) 9 L [place] % (Auto) 11 Eos % (Auto) 1 Baso % (Auto) 0 Neut # (Auto) 6.2 Lymph # (Auto) 0.7 L [place] # (Auto) 0.8 Eos # (Auto) 0.0 Baso # (Auto) 0.0 Immature Gran # (Auto) 0.02 H Absolute Nucleated RBC 0.00 Immature Gran % 0 Nucleated RBC % 0 Sodium 140 Potassium 3.2 L D Chloride 104 Carbon Dioxide 22.6 Anion Gap 13 BUN 8 L Creatinine 0.8 Estim Creat Clear Calc 79.1 eGFR > 60 BUN/Creatinine Ratio 10 L Glucose [address] Glu mg/dL 100 Hemoglobin A1c 5.1 Calculated Osmolality 277 Calcium 9.6 Corrected Calcium 9.6 Phosphorus 3.5 Magnesium 1.9 Total Bilirubin 2.4 H Direct Bilirubin Cancelled 0.6 H AST 12 ALT 11 Alkaline Phosphatase 73 Total Protein 6.3 Albumin 4.1 D Globulin 2.2 L Albumin/Globulin Ratio 1.9 Triglycerides 72 Cholesterol 151 LDL Cholesterol, Calc 101 HDL Cholesterol 36 L Cholesterol/HDL Ratio 4.2 TSH 0.79 Quality Measures Quality Measures none Advance care planning discussed with:: patient Assessment & Plan Assessment Current Active Medications: Generic Name Dose Route Start Last Admin Trade Name Freq PRN Reason Stop Dose Admin Acetaminophen 650 mg 05/28/25 21:09 Acetaminophen 325 Mg Tablet PO 06/27/25 21:08 Q6H PRN Fever >100.3 or mild pain 1-3 Aspirin 81 mg 05/29/25 09:00 05/29/25 08:24 Aspirin Ec 81 Mg Tabec PO 06/28/25 08:59 81 mg QDAY GLORIA Administration Atorvastatin Calcium 40 mg 05/29/25 21:00 Atorvastatin Calcium 20 Mg Tablet PO 06/28/25 20:59 HS GLORIA Famotidine 20 mg 05/29/25 09:00 05/29/25 08:24 Famotidine 20 Mg Tablet PO 06/28/25 08:59 20 mg BID GLORIA Administration Heparin Sodium (Porcine) 5,000 unit 05/29/25 09:00 05/29/25 08:24 Heparin Sod Inj 5000 Unit/Ml Vial SC 06/12/25 08:59 5,000 unit Q12HR GLORIA Administration Labetalol HCl 10 mg 05/28/25 21:19 Labetalol Inj 5 Mg/Ml Vial 20 Ml IVP 06/27/25 21:18 Q6HR PRN Hypertension Ondansetron HCl 4 mg 05/28/25 21:09 Ondansetron Inj 2 Mg/Ml Inj 2 Ml IVP 06/27/25 21:08 Q6H PRN NAUSEA OR VOMITING Protocol Sennosides 1 tab 05/29/25 09:00 05/29/25 08:24 Senna Tablet PO 06/28/25 08:59 1 tab QDAY GLORIA Administration Protocol Plan Patient is a 74-year-old male with a past medical history of hypertension, hyperlipidemia, 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 Patient was admitted for lower extremity weakness and mechanical fall, CVA rule out. #CVA, work up #Pre-syncope #Vertigo #Mechanical Fall #Right upper extremity weakness #Right lower extremity weakness Patient initially complaining of right lower extremity weakness occurring of the last 4 days with his leg just giving out on physical exam no drift and motor strength within normal limits, full sensation. Rule out stroke/TIA vs seizure vs orthostatic vitals given lack of medication compliance. Noted to have right upper extremity weakness a few hours later, which patient states is new while his right leg weakness has been a persistent issue. Diagnostics: CT Head: Shunt stable position, Prominent venous channels in the subarachnoid space. Large area of encephalomalacia in the left temporal lobe with adjacen craniotomy defect, aneurysm clip and presumed embolization material-->Chronic Changes & No hemorrhage CTA Head/Neck: Basilar artery posterior cerebral branches, middle cerebral and anterior cerebral arteries demonstrate no large vessel occlusions or thrombus. Left vertebral artery is atretic and does not fill in the intracranial portion of its course, recommend carotid vertebral Doppler sonography follow-up to assess for retrograde flow in the left vertebral artery-->Per neuro, No significan stenosis of occlusion Plan -MRI brain w/o contrast, pending -EEG, pending -Echo w/ bubble study, pending -permissive HTN -Aspirin 81 mg & Atorvastatin 40 mg (based on neruo recs) -Neuro Checks -Aspiration Precautions, Head of bed 30 degrees -Bedside swallow screen and evaluation -Euglycemia and avoid Hyperthermia -Acetaminophen PRN -NPO -BNP and CBC -A1c ordered, resulted as 5.1% -Lipid Panel ordered, noted only HDL abnormal at 36 -TSH ordered, resulted as 0.79 -Labetalol PRN, give if SBP >220 or DBP >110 -Neuro consult #?History of Seizures Patient endorses a history of seizures that was diagnosed by a neurologist in [place]. The patient stated that he was diagnosed when he was young and initially took seizure medications, but has been off of them for about 30 years. Patient does not recall what medication he took for seizures nor the name of his neurologist. Patient states that he last saw a neurologist in [place] about 2 years ago. -Neuro consult -EEG, pending #Hypertension Patient has a past medical history of hypertension but denies any medicaiton, mechancal fall and dizziness may be secondary to poor blood pressure management. Plan -Medication reconcillication -Allow for permissive HTN-->YELENA/ARBCs after #HLD Patient denied taking atorvastatin. Patient denied any medication Plan -Atorvastatin 40 mg HS -Lipid Panel ordered, noted only HDL abnormal at 36 #Hyperbilirubinemia Patient presented with total bili of 2.1 w/ direct bili 0.6. Patient deneid upper qudarant pain and normal AST/ALT, likely secondary to poor oral intake, per patient history vs liver disease, consider hepa panel vs other lysis of RBC but less likely given normal hgb. Plan -continue to monitor CMP -US Gallbladder ordered, negative for cholelithiasis, cholecystitis, and liver noted to have lobular contour, suspicious for primary hepatocellular disease #Erythrocytosis Maybe secondary to FAMILIA vs reactive vs REE mutation Plan -continue to monitor Health Maintenance: Disp: Pt is currently admitted to floors for further management of left lower weakness , awaiting MRI FEN: NPO, Famotidine DVT: on subQ heparin 12 hrs Code: Full code - The patient's plan was discussed with attending Dr. Kasie López, DO PGY2 Internal Medicine Attending Provider Attestation/Addendum I attest that I was physically present for the evaluation, physical examination, lab and imaging review of the patient with the residents. I discussed the case with the residents and agree with the findings and plans of care as documented above. Cliff Ferro MD
[2025-05-29 16:08] LABS: Amphetamine/Methamp Scrn,U Negative (Negative); Barbiturate Screen,Urine Negative (Negative); Benzodiazepines Screen,Urine Negative (Negative); Benzoylecgonine Screen, Ur Negative (Negative); Fentanyl Screen,Urine Negative (Negative); Opiate Screen,Urine Negative (Negative)
[2025-05-29 16:26] LABS: Alcohol, Urine Negative (Negative); THC Screen,Urine Positive (Negative)
--- NOTE | 2025-05-29 20:25 | PC.NURSE ---
Pt. refused 2100 medications. ARON Cornelius attempted to administer medications, but patient angrily stated leave me alone!
--- NOTE | 2025-05-29 21:20 | PC.NURSE ---
NOE Vu notified ARON Cornelius that patient did not want to do the EEG. Pt failed to follow instructions.
--- NOTE | 2025-05-29 21:23 | RESP.EEG ---
EEG was not completed due to Pt non compliance and refusing to follow instruction. Pt becomes agitated and angry when asked to follow commands. ARON Cornelius is aware.
[2025-05-30] VITALS (15 sets, daily range): BP systolic 127–154; BP diastolic 58–98; PULSE 67–96; RESP 17–97; TEMP 36.1–36.5; O2SAT 94–97; BMI 19.9; BMI 13.0
[2025-05-30 06:25] LABS: Basophils # (Auto) 0.1 Thou/mm3 (0.0-0.2); Basophils % (Auto) 1 % (0-2.5); Eosinophils # (Auto) 0.1 Thou/mm3 (0.0-0.5); Eosinophils % (Auto) 1 % (0-10); Hematocrit 47.5 % (41.0-53.0); Hemoglobin 17.1 g/dL (13.5-16.0); Immature Granulocytes Auto 0.05 Thou/mm3 (0.00-0.00); Lymphocytes # (Auto) 0.8 Thou/mm3 (1.0-4.8); Lymphocytes % (Auto) 12 % (10-50); Mean Corpuscular HGB Conc 36.0 g/dl (31.0-37.0); Mean Corpuscular Hemoglobin 30.9 pg (25.0-35.0); Mean Corpuscular Volume 86 fL (80-100); Monocytes # (Auto) 0.7 Thou/mm3 (0.0-0.8); Monocytes % (Auto) 10 % (0-12); Neutrophils # (Auto) 5.5 Thou/mm3 (1.8-7.7); Neutrophils % (Auto) 76 % (37-80); Nucleated Red Blood Cell # 0.00 Thou/mm3 (0.00-0.00); Nucleated Red Blood Cell % 0 /100 WBC (0); Platelet Count 147 Thou/mm3 (140-440); RDW Standard Deviation 41.7 fL (35.1-43.9); Red Blood Count 5.54 Miln/mm3 (4.50-5.90); White Blood Count 7.2 Thou/mm3 (3.8-10.6)
[2025-05-30 07:17] LABS: Alanine Aminotransferase 9 U/L (10-49); Albumin, Serum 4.1 gm/dL (3.4-4.8); Albumin/Globulin Ratio 2.0 (1.2-2.2); Alkaline Phosphatase 69 U/L (46-116); Anion Gap 12 (7-16); Aspartate Amino Transferase < 10 U/L (0-34); BUN/Creatinine Ratio 14 Ratio (12-20); Blood Urea Nitrogen 13 mg/dL (9-23); Calcium 9.5 mg/dL (8.3-10.6); Calcium (Corrected) 9.5 mg/dL (8.5-10.1); Carbon Dioxide 21.7 mMol/L (20.0-31.0); Chloride 106 mMol/L (98-107); Creatinine (Component) 0.9 mg/dL (0.6-1.3); Estimated Creatinine Clearance 63.3 mL/min (>60); Globulin 2.1 gm/dL (2.3-3.5); Glucose 92 mg/dL (74-106); Magnesium 2.0 mg/dL (1.6-2.6); Osmolality,Calculated 279 (275-295); Phosphorous 3.0 mg/dL (2.4-5.1); Potassium 3.5 mMol/L (3.4-5.1); Sodium 140 mMol/L (136-145); Total Protein 6.2 gm/dL (5.7-8.2); eGFR > 60 See Note
[2025-05-30 07:49] LABS: Bilirubin,Total 1.5 mg/dL (0.3-1.2)
[2025-05-30] MEDS: LOSARTAN POTASSIUM 25 MG TABLET PO ×2 (09:13→14:39)
[2025-05-30] MEDS: ASPIRIN EC 81 MG TABEC PO (09:13)
[2025-05-30] MEDS: HEPARIN SOD INJ 5000 UNIT/ML VIAL SC ×2 (09:14→20:06)
[2025-05-30] MEDS: FAMOTIDINE 20 MG TABLET PO ×2 (09:14→20:05)
--- NOTE | 2025-05-30 11:31 | PC.SS ---
This is 74-year-old, single, male who presented to the ED due to suffering from right leg weakness and not eating for 4 days. Patient appeared alert and oriented to self, place and situation. Patient was pleasant. His thought process was delayed with answers. Patient reported that he resides in a home with his nephew, Cristofer. Patient reported that he needs assistance with ADLs. Patient uses a walker or cane. Patient assigned his nephew, Cristofer Gonzales, as his medical surrogate decision maker. Patient's PCP is Jonna Souza. [facility] Keeper will follow-up with patient and Cristofer to complete discharge plan. Discharge plan: SS to follow-up with patient and Cristofer to discuss options when PT is completed. Medical surrogate decision maker: Cristofer Gonzales, nephew. Patient remains in the hospital due to pending neurology work-up (MRI, EEG, and echo), as well as PT evaluation.
--- NOTE | 2025-05-30 12:00 | ESPR_ITS ---
<Statement entered by Tim Rodriguez MD - 05/30/25 14:26> Patient was seen and examined at bedside. I agree on the assessment and plan on this note as documented by resident Aaron López DO PGY1. 74-year-old male with past medical history of hypertension, hyperlipidemia, history of left hemispheric stroke 1990s, status post craniotomy and LBBB 2R [employer] shunt admitted for lower extremity weakness and CVA workup. Pending MRI, echocardiogram today shows bubble study negative does have grade 1 diastolic dysfunction no signs and symptoms of heart failure. Pending neurology recommendations, will continue with aspirin, started on losartan for blood pressure management today. Disposition telemetry pending completion of stroke workup. Case discussed with attending Dr. Cliff Rodriguez MD PGY-2 Documentation for date of: 05/30/25 Subjective Subjective Interval history: Overnight events: No acute events overnight. Patient was seen and examined at bedside. AM vitals and labs reviewed. Patient refused evening meds last night. No concerns at this time. Patient feels better compared to yesterday. Right upper extremity and facial droop no longer present. RLE still slightly weaker than LLE. Echocardiogram 05/28 showed negative bubble study, normal LV function and size, EF 55-60%. Pending MRI and recommendations from neurology. EEG completed, pending read. Review of systems otherwise negative except for what is mentioned above. Exam Vital Signs Temp Pulse Resp BP Pulse Ox O2 Del Method 96.9 F 85 17 151/98 H 97 Room Air 05/30/25 07:33 05/30/25 09:13 05/30/25 07:33 05/30/25 09:13 05/30/25 07:33 05/30/25 07:33 Narrative Exam Physical Exam: General: Alert, no acute distress. Skin: Warm, dry, intact, no obvious rash. Head: Normocephalic, atraumatic. Eye: Normal conjunctiva, PERRL. Throat: Oral mucosa moist. No obvious lesions in oropharynx. Cardiovascular: Regular rate and rhythm, no murmur, +S1/S2. Respiratory: Lungs are clear to auscultation, respirations unlabored, no crackles, no wheezing. Gastrointestinal: Soft, nontender, non-distended. No guarding or rebound tenderness. Extremities: No edema, no cyanosis, no clubbing. 2+ radial pulse bilaterally, 2+ pedal pulse bilaterally. Neuro: RUE 5/5, LUE 5/5, RLE 4+/5, LLE 5/5. Conversant, moving all extremities. No overt cerebellar signs/incoordination. Psychiatric: Cooperative, appropriate affect. Objective Labs 05/30/25 04:39 05/30/25 04:39 Labs: Laboratory Results - last 24 hr 05/29/25 05/30/25 14:30 04:39 WBC 7.2 RBC 5.54 Hgb 17.1 H Hct 47.5 MCV 86 MCH 30.9 MCHC 36.0 RDW Std Deviation 41.7 Plt Count 147 Neut % (Auto) 76 Lymph % (Auto) 12 [place] % (Auto) 10 Eos % (Auto) 1 Baso % (Auto) 1 Neut # (Auto) 5.5 Lymph # (Auto) 0.8 L [place] # (Auto) 0.7 Eos # (Auto) 0.1 Baso # (Auto) 0.1 Immature Gran # (Auto) 0.05 H Absolute Nucleated RBC 0.00 Immature Gran % 1 H Nucleated RBC % 0 Sodium 140 Potassium 3.5 Chloride 106 Carbon Dioxide 21.7 Anion Gap 12 BUN 13 Creatinine 0.9 Estim Creat Clear Calc 63.3 eGFR > 60 BUN/Creatinine Ratio 14 Glucose 92 Calculated Osmolality 279 Calcium 9.5 Corrected Calcium 9.5 Phosphorus 3.0 Magnesium 2.0 Total Bilirubin 1.5 H D AST < 10 ALT 9 L Alkaline Phosphatase 69 Total Protein 6.2 Albumin 4.1 Globulin 2.1 L Albumin/Globulin Ratio 2.0 Urine Opiates Screen Negative Urine Fentanyl Screen Negative Ur Barbiturates Screen Negative U Amphetamin/Meth Scrn Negative U Benzodiazepines Scrn Negative U Cocaine Metab Screen Negative U Marijuana (THC) Screen Positive A Urine Alcohol Negative Quality Measures Quality Measures none Advance care planning discussed with:: patient Assessment & Plan Assessment Current Active Medications: Generic Name Dose Route Start Last Admin Trade Name Freq PRN Reason Stop Dose Admin Acetaminophen 650 mg 05/28/25 21:09 Acetaminophen 325 Mg Tablet PO 06/27/25 21:08 Q6H PRN Fever >100.3 or mild pain 1-3 Aspirin 81 mg 05/29/25 09:00 05/30/25 09:13 Aspirin Ec 81 Mg Tabec PO 06/28/25 08:59 81 mg QDAY GLORIA Administration Atorvastatin Calcium 40 mg 05/29/25 21:00 05/29/25 20:25 Atorvastatin Calcium 20 Mg Tablet PO 06/28/25 20:59 Not Given HS GLORIA Famotidine 20 mg 05/29/25 09:00 05/30/25 09:14 Famotidine 20 Mg Tablet PO 06/28/25 08:59 20 mg BID GLORIA Administration Heparin Sodium (Porcine) 5,000 unit 05/29/25 09:00 05/30/25 09:14 Heparin Sod Inj 5000 Unit/Ml Vial SC 06/12/25 08:59 5,000 unit Q12HR GLORIA Administration Labetalol HCl 10 mg 05/28/25 21:19 Labetalol Inj 5 Mg/Ml Vial 20 Ml IVP 06/27/25 21:18 Q6HR PRN Hypertension Losartan Potassium 25 mg 05/30/25 08:35 05/30/25 09:13 Losartan Potassium 25 Mg Tablet PO 06/29/25 08:34 25 mg QDAY GLORIA Administration Ondansetron HCl 4 mg 05/28/25 21:09 Ondansetron Inj 2 Mg/Ml Inj 2 Ml IVP 06/27/25 21:08 Q6H PRN NAUSEA OR VOMITING Protocol Sennosides 1 tab 05/29/25 09:00 05/30/25 09:13 Senna Tablet PO 06/28/25 08:59 1 tab QDAY GLORIA Administration Protocol Plan Patient is a 74-year-old male with a past medical history of hypertension, hyperlipidemia, 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 Patient was admitted for lower extremity weakness and mechanical fall, CVA rule out. #CVA, work up #Pre-syncope #Vertigo #Mechanical Fall #Right upper extremity weakness #Right lower extremity weakness Patient initially complaining of right lower extremity weakness occurring of the last 4 days with his leg just giving out on physical exam no drift and motor strength within normal limits, full sensation. Rule out stroke/TIA vs seizure vs orthostatic vitals given lack of medication compliance. Noted to have right upper extremity weakness a few hours later, which patient states is new while his right leg weakness has been a persistent issue. Diagnostics: CT Head: Shunt stable position, Prominent venous channels in the subarachnoid space. Large area of encephalomalacia in the left temporal lobe with adjacen craniotomy defect, aneurysm clip and presumed embolization material-->Chronic Changes & No hemorrhage CTA Head/Neck: Basilar artery posterior cerebral branches, middle cerebral and anterior cerebral arteries demonstrate no large vessel occlusions or thrombus. Left vertebral artery is atretic and does not fill in the intracranial portion of its course, recommend carotid vertebral Doppler sonography follow-up to assess for retrograde flow in the left vertebral artery-->Per neuro, No significan stenosis of occlusion Plan -MRI brain w/o contrast, pending -EEG, pending -Echo w/ bubble study 05/28, showed negative bubble study, normal LV function and size, EF 55-60%. -permissive HTN -Aspirin 81 mg & Atorvastatin 40 mg (based on neruo recs) -Neuro Checks -Aspiration Precautions, Head of bed 30 degrees -Bedside swallow screen and evaluation -Euglycemia and avoid Hyperthermia -Acetaminophen PRN -BNP and CBC daily -A1c ordered, resulted as 5.1% -Lipid Panel ordered, noted only HDL abnormal at 36 -TSH ordered, resulted as 0.79 -Labetalol PRN, give if SBP >220 or DBP >110 -Neuro consult -Patient to f/u w/ outpt neurology and neurosurgery #?History of Seizures Patient endorses a history of seizures that was diagnosed by a neurologist in [place]. The patient stated that he was diagnosed when he was young and initially took seizure medications, but has been off of them for about 30 years. Patient does not recall what medication he took for seizures nor the name of his neurologist. Patient states that he last saw a neurologist in [place] about 2 years ago. -Neuro consult -EEG, pending #Hypertension Patient has a past medical history of hypertension but denies any medicaiton, mechancal fall and dizziness may be secondary to poor blood pressure management. Patient claims to be off any medications for about a year. Plan -Losartan 50 mg BID starting 05/31, Losartan 25 mg twice on 05/30. -Will continue to monitor, will start further antihypertensives if BP remains high #HLD Patient denied taking atorvastatin. Patient denied any medication Plan -Atorvastatin 40 mg HS -Lipid Panel ordered, noted only HDL abnormal at 36 #Hyperbilirubinemia Patient presented with total bili of 2.1 w/ direct bili 0.6. Patient deneid upper qudarant pain and normal AST/ALT, likely secondary to poor oral intake, per patient history vs liver disease, consider hepa panel vs other lysis of RBC but less likely given normal hgb. Plan -continue to monitor CMP -US Gallbladder ordered, negative for cholelithiasis, cholecystitis, and liver noted to have lobular contour, suspicious for primary hepatocellular disease #Erythrocytosis Maybe secondary to FAMILIA vs reactive vs REE mutation Plan -continue to monitor Health Maintenance: Disp: Pt is currently admitted to floors for further management of left lower weakness , awaiting MRI FEN: Regular, Famotidine DVT: on subQ heparin 12 hrs Code: Full code - The patient's plan was discussed with attending Dr. Ferro and senior resident Dr. Rodriguez (PGY-2) Aaron López DO PGY1 Internal Medicine Attending Provider Attestation/Addendum I attest that I was physically present for the evaluation, physical examination, lab and imaging review of the patient with the residents. I discussed the case with the residents and agree with the findings and plans of care as documented above. At bedside today, patient states he is feeling well and denies any new overnight, he refused his oral medication. Awaiting MRI, physical therapy, neurology recommendations. Blood pressure noted to be on higher side, added losartan 25 daily. Cliff Ferro MD
--- NOTE | 2025-05-30 15:57 | RESP.EEG ---
EEG COMPLETED WAITING TO BE READ
[2025-05-30 19:09] LABS: Folate 16.53 ng/mL (>5.38); Vitamin B12 277 pg/mL (211-911)
[2025-05-30] MEDS: ATORVASTATIN CALCIUM 20 MG TABLET 40 MG PO (20:05)
[2025-05-31] VITALS (11 sets, daily range): BP systolic 133–162; BP diastolic 80–94; PULSE 71–82; RESP 16–18; TEMP 36.1–36.4; O2SAT 93–98; BMI 19.9; BMI 13.0
[2025-05-31 06:13] LABS: Basophils # (Auto) 0.0 Thou/mm3 (0.0-0.2); Basophils % (Auto) 1 % (0-2.5); Eosinophils # (Auto) 0.1 Thou/mm3 (0.0-0.5); Eosinophils % (Auto) 1 % (0-10); Hematocrit 47.2 % (41.0-53.0); Hemoglobin 16.5 g/dL (13.5-16.0); Immature Granulocytes Auto 0.03 Thou/mm3 (0.00-0.00); Lymphocytes # (Auto) 1.1 Thou/mm3 (1.0-4.8); Lymphocytes % (Auto) 16 % (10-50); Mean Corpuscular HGB Conc 35.0 g/dl (31.0-37.0); Mean Corpuscular Hemoglobin 29.9 pg (25.0-35.0); Mean Corpuscular Volume 86 fL (80-100); Monocytes # (Auto) 0.7 Thou/mm3 (0.0-0.8); Monocytes % (Auto) 10 % (0-12); Neutrophils # (Auto) 4.9 Thou/mm3 (1.8-7.7); Neutrophils % (Auto) 72 % (37-80); Nucleated Red Blood Cell # 0.00 Thou/mm3 (0.00-0.00); Nucleated Red Blood Cell % 0 /100 WBC (0); Platelet Count 165 Thou/mm3 (140-440); RDW Standard Deviation 41.8 fL (35.1-43.9); Red Blood Count 5.52 Miln/mm3 (4.50-5.90); White Blood Count 6.8 Thou/mm3 (3.8-10.6)
[2025-05-31 06:45] LABS: Alanine Aminotransferase 8 U/L (10-49); Albumin, Serum 3.8 gm/dL (3.4-4.8); Albumin/Globulin Ratio 1.4 (1.2-2.2); Alkaline Phosphatase 66 U/L (46-116); Anion Gap 12 (7-16); Aspartate Amino Transferase 11 U/L (0-34); BUN/Creatinine Ratio 11 Ratio (12-20); Bilirubin,Total 0.9 mg/dL (0.3-1.2); Blood Urea Nitrogen 10 mg/dL (9-23); Calcium 9.4 mg/dL (8.3-10.6); Calcium (Corrected) 9.6 mg/dL (8.5-10.1); Carbon Dioxide 22.0 mMol/L (20.0-31.0); Chloride 106 mMol/L (98-107); Creatinine (Component) 0.9 mg/dL (0.6-1.3); Estimated Creatinine Clearance 63.3 mL/min (>60); Globulin 2.8 gm/dL (2.3-3.5); Glucose 98 mg/dL (74-106); Magnesium 2.0 mg/dL (1.6-2.6); Osmolality,Calculated 278 (275-295); Phosphorous 3.1 mg/dL (2.4-5.1); Potassium 3.8 mMol/L (3.4-5.1); Sodium 140 mMol/L (136-145); Total Protein 6.6 gm/dL (5.7-8.2); eGFR > 60 See Note
[2025-05-31] MEDS: LOSARTAN POTASSIUM 25 MG TABLET 50 MG PO (08:07)
[2025-05-31] MEDS: FAMOTIDINE 20 MG TABLET PO ×2 (08:08→20:12)
[2025-05-31] MEDS: ASPIRIN EC 81 MG TABEC PO (08:08)
[2025-05-31] MEDS: HEPARIN SOD INJ 5000 UNIT/ML VIAL SC ×2 (08:08→20:12)
--- NOTE | 2025-05-31 10:07 | PC.SS ---
Follow up note: MRI pending. Stroke work up.
--- NOTE | 2025-05-31 14:00 | ESPR_ITS ---
<Statement entered by Kath High MD - 06/01/25 16:55> Pt is seen at bedside. currently denies any dizness. Pt is pending final neurology recommendations. Symptoms are likely related to TIA. Patient was seen and examined by me personally. I have directly supervised and reviewed documentation by the team resident and agree with its findings. ------- Plan of care was discussed with the attending, Dr. Kasie High, PGY-2 <Statement entered by Cliff Ferro MD - 06/01/25 09:32> I attest that I was physically present for the evaluation, physical examination, lab and imaging review of the patient with the residents. I discussed the case with the residents and agree with the findings and plans of care as documented below. Cliff Ferro MD Documentation for date of: 05/31/25 Subjective Subjective Interval history: Overnight events: No acute events overnight. Patient was seen and examined at bedside. AM vitals and labs reviewed. No complaints at this time. RLE still feels weaker than LLE, but strength seems to be slightly stronger. Pending MRI and EEG read. Patient does NOT remember who performed VALUER shunt placement or aneurysm clip. Patient does NOT remember where those procedures were performed. The patient DID have an MRI performed at [facility] on 07/26/22, where both the shunt was identified and the clip has long since been placed. Called surveillance technician and they say that they no longer have the records regarding his shunt or clip, so they are unable to take the patient for MRI at this time, even though he was successfully cleared for MRI at [facility] back in 2021. Pending recommendations from neurology. Review of systems otherwise negative except for what is mentioned above. Exam Vital Signs Temp Pulse Resp BP Pulse Ox O2 Del Method 97.1 F 75 18 133/80 H 95 Room Air 05/31/25 12:05/31/25 12:05/31/25 12:05/31/25 12:05/31/25 12:05/31/25 12:00 Narrative Exam Physical Exam: General: Alert, no acute distress. Skin: Warm, dry, intact. Head: Normocephalic, atraumatic. Eye: Normal conjunctiva, PERRL. Cardiovascular: Regular rate and rhythm, no murmur, +S1/S2. Respiratory: Lungs are clear to auscultation, respirations unlabored, no crackles, no wheezing. Gastrointestinal: Soft, nontender, non-distended. No guarding or rebound tenderness. Extremities: No edema, no cyanosis, no clubbing. 2+ radial pulse bilaterally, 2+ pedal pulse bilaterally. Neuro: RUE 5/5, LUE 5/5, RLE 4+/5, LLE 5/5. Conversant, moving all extremities. No overt cerebellar signs/incoordination. Psychiatric: Cooperative, appropriate affect. Objective Labs 05/31/25 05:35 05/31/25 05:35 Labs: Laboratory Results - last 24 hr 05/29/25 05/31/25 04:43 05:35 WBC 6.8 RBC 5.52 Hgb 16.5 H Hct 47.2 MCV 86 MCH 29.9 MCHC 35.0 RDW Std Deviation 41.8 Plt Count 165 Neut % (Auto) 72 Lymph % (Auto) 16 [place] % (Auto) 10 Eos % (Auto) 1 Baso % (Auto) 1 Neut # (Auto) 4.9 Lymph # (Auto) 1.1 [place] # (Auto) 0.7 Eos # (Auto) 0.1 Baso # (Auto) 0.0 Immature Gran # (Auto) 0.03 H Absolute Nucleated RBC 0.00 Immature Gran % 0 Nucleated RBC % 0 Sodium 140 Potassium 3.8 Chloride 106 Carbon Dioxide 22.0 Anion Gap 12 BUN 10 Creatinine 0.9 Estim Creat Clear Calc 63.3 eGFR > 60 BUN/Creatinine Ratio 11 L Glucose 98 Calculated Osmolality 278 Calcium 9.4 Corrected Calcium 9.6 Phosphorus 3.1 Magnesium 2.0 Total Bilirubin 0.9 D AST 11 ALT 8 L Alkaline Phosphatase 66 Total Protein 6.6 Albumin 3.8 Globulin 2.8 Albumin/Globulin Ratio 1.4 Vitamin B12 277 Folate 16.53 Quality Measures Quality Measures none Advance care planning discussed with:: patient Assessment & Plan Assessment Current Active Medications: Generic Name Dose Route Start Last Admin Trade Name Freq PRN Reason Stop Dose Admin Acetaminophen 650 mg 05/28/25 21:09 Acetaminophen 325 Mg Tablet PO 06/27/25 21:08 Q6H PRN Fever >100.3 or mild pain 1-3 Amlodipine Besylate 5 mg 05/31/25 10:30 05/31/25 10:43 Amlodipine Besylate 5 Mg Tablet PO 06/30/25 10:29 5 mg QDAY GLORIA Administration Aspirin 81 mg 05/29/25 09:00 05/31/25 08:08 Aspirin Ec 81 Mg Tabec PO 06/28/25 08:59 81 mg QDAY GLORIA Administration Atorvastatin Calcium 40 mg 05/29/25 21:00 05/30/25 20:05 Atorvastatin Calcium 20 Mg Tablet PO 06/28/25 20:59 40 mg HS GLORIA Administration Famotidine 20 mg 05/29/25 09:00 05/31/25 08:08 Famotidine 20 Mg Tablet PO 06/28/25 08:59 20 mg BID GLORIA Administration Heparin Sodium (Porcine) 5,000 unit 05/29/25 09:00 05/31/25 08:08 Heparin Sod Inj 5000 Unit/Ml Vial SC 06/12/25 08:59 5,000 unit Q12HR GLORIA Administration Labetalol HCl 10 mg 05/28/25 21:19 Labetalol Inj 5 Mg/Ml Vial 20 Ml IVP 06/27/25 21:18 Q6HR PRN Hypertension Losartan Potassium 50 mg 05/31/25 09:00 05/31/25 08:07 Losartan Potassium 25 Mg Tablet PO 06/30/25 08:59 50 mg QDAY GLORIA Administration Ondansetron HCl 4 mg 05/28/25 21:09 Ondansetron Inj 2 Mg/Ml Inj 2 Ml IVP 06/27/25 21:08 Q6H PRN NAUSEA OR VOMITING Protocol Sennosides 1 tab 05/29/25 09:00 05/31/25 08:07 Senna Tablet PO 06/28/25 08:59 1 tab QDAY GLORIA Administration Protocol Plan Patient is a 74-year-old male with a past medical history of hypertension, hyperlipidemia, 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 Patient was admitted for lower extremity weakness and mechanical fall, CVA rule out. #CVA, work up #Pre-syncope #Vertigo #Mechanical Fall #Right upper extremity weakness (resolved) #Right lower extremity weakness Patient initially complaining of right lower extremity weakness occurring of the last 4 days with his leg just giving out on physical exam no drift and motor strength within normal limits, full sensation. Rule out stroke/TIA vs seizure vs orthostatic vitals given lack of medication compliance. Noted to have right upper extremity weakness a few hours later, which patient states is new while his right leg weakness has been a persistent issue. Right upper extremity weakness noted to have resolved the next day, but right lower extremity weakness continues to persist. Diagnostics: CT Head: Shunt stable position, Prominent venous channels in the subarachnoid space. Large area of encephalomalacia in the left temporal lobe with adjacen craniotomy defect, aneurysm clip and presumed embolization material-->Chronic Changes & No hemorrhage CTA Head/Neck: Basilar artery posterior cerebral branches, middle cerebral and anterior cerebral arteries demonstrate no large vessel occlusions or thrombus. Left vertebral artery is atretic and does not fill in the intracranial portion of its course, recommend carotid vertebral Doppler sonography follow-up to assess for retrograde flow in the left vertebral artery-->Per neuro, No significan stenosis of occlusion Plan -MRI brain w/o contrast, pending (current issues with being unable to verify MRI compatability of shunt and clips, even though patient was deemed MRI compatible for MRI at [facility] back in 2021) -EEG, pending -Echo w/ bubble study 05/28, showed negative bubble study, normal LV function and size, EF 55-60%. -Aspirin 81 mg & Atorvastatin 40 mg (based on neruo recs) -Neuro Checks -Aspiration Precautions, Head of bed 30 degrees -Bedside swallow screen and evaluation, passed -Euglycemia and avoid Hyperthermia -Acetaminophen PRN -BNP and CBC daily -A1c ordered, resulted as 5.1% -Lipid Panel ordered, noted only HDL abnormal at 36 -TSH ordered, resulted as 0.79 -Labetalol PRN, give if SBP >220 or DBP >110 -Neuro consult, appreciate recommendations -Patient to f/u w/ outpt neurology and neurosurgery #?History of Seizures Patient endorses a history of seizures that was diagnosed by a neurologist in [place]. The patient stated that he was diagnosed when he was young and initially took seizure medications, but has been off of them for about 30 years. Patient does not recall what medication he took for seizures nor the name of his neurologist. Patient states that he last saw a neurologist in [place] about 2 years ago. -Neuro consult -EEG, pending #Hypertension Patient has a past medical history of hypertension but denies any medicaiton, mechancal fall and dizziness may be secondary to poor blood pressure management. Patient claims to be off any medications for about a year. Plan -Losartan 50 mg BID starting 05/31, Losartan 25 mg twice on 05/30. -Will continue to monitor, will start further antihypertensives if BP remains high #HLD Patient denied taking atorvastatin. Patient denied any medication Plan -Atorvastatin 40 mg HS -Lipid Panel ordered, noted only HDL abnormal at 36 #Hyperbilirubinemia Patient presented with total bili of 2.1 w/ direct bili 0.6. Patient deneid upper qudarant pain and normal AST/ALT, likely secondary to poor oral intake, per patient history vs liver disease, consider hepa panel vs other lysis of RBC but less likely given normal hgb. Plan -continue to monitor CMP -US Gallbladder ordered, negative for cholelithiasis, cholecystitis, and liver noted to have lobular contour, suspicious for primary hepatocellular disease #Erythrocytosis Maybe secondary to FAMILIA vs reactive vs REE mutation Plan -continue to monitor Health Maintenance: Disp: Pt is currently admitted to floors for further management of left lower weakness , awaiting MRI FEN: Regular, Famotidine DVT: on subQ heparin 12 hrs Code: Full code - The patient's plan was discussed with attending Dr. Ferro and senior resident Dr. High (PGY-2) Aaron López DO PGY1 Internal Medicine
--- NOTE | 2025-05-31 15:35 | XR_ITS ---
Examination: CT brain head without contrast. 2-D sagittal coronal reconstructions Date and time of exam:May 31, 2025, 1557 hours, comparison May 28, 2025 INDICATIONS: Right-sided body weakness beginning 3 days ago, stroke alert May 27, 2025 CTDI: vol (mGy):48.9 DLP: (mGycm):1014 Technique: Multiple CT axial sections of the brain have been obtained, 5 mm slice thickness. Contrast has not been administered. 2-D sagittal, coronal reconstructions have been obtained Low dose protocols were performed. One or more of the following dose reduction techniques were used; automated exposure control, adjustment of the mA and/or KV according to patient size, use of iterative reconstruction technique. Findings: Large left temporal craniotomy defect, encephalomalacia in the left temporal lobe with aneurysm clips Ventricular peritoneal shunt tube frontal horns No interval acute hemorrhage either intra or extra-axial Prominent subarachnoid spaces, stable compared to the prior study IMPRESSION: No interval acute hemorrhage mass effect or midline shift
--- NOTE | 2025-05-31 17:36 | PC.NURSE ---
Radiology contacted this nurse regarding MRI order, stated they are unable to do MRI until they receive model number for [employer] shunt done in 2001 and details on aneurysm clip inserted 2006. Radiology aware that an MRI was completed in 2021 without that additional information. Medical records request from [facility] has been faxed. Dr. Daley's office has been contacted, they stated they will attempt to locate information since he is a mutual patient. [facility] has been contacted with no response from medical record department, voicemail was left.
[2025-05-31] MEDS: ATORVASTATIN CALCIUM 20 MG TABLET 40 MG PO (20:11)
--- NOTE | 2025-05-31 20:53 | PD.NEUROPROG ---
Documentation for date of: 05/31/25 Subjective Subjective Interval history: Patient was seen in [facility] today, continue to have right hemiparesis affecting face arm and leg, leg weakness with foot drop especially. He complains of pain in the right leg but not radiating from the lower back. Exam - Neurology Vital Signs Temp Pulse Resp BP Pulse Ox O2 Del Method 97.5 F 79 17 150/94 H 96 Room Air 05/31/25 20:00 05/31/25 20:00 05/31/25 20:00 05/31/25 20:00 05/31/25 20:00 05/31/25 20:00 Narrative Exam GENERAL APPEARANCE: Well hydrated, well-nourished in no acute distress. HEENT: Normocephalic, atraumatic, extraocular movements intact. Pupils: Equal reacting to light and accommodation NECK: Supple, no JVD or bruits. CARDIOVASULAR: Heart: S1, S2 heard, regular without S3-S4 or murmur no rubs or gallops. LUNGS/CHEST: Clear to auscultation bilaterally. No rails, rhonchi, or wheezing. Normal inspection. ABDOMEN: Soft, nontender, with normal bowel sounds. No pulsatile masses. No rebound, rigidity, or guarding. Normal inspection and palpation. EXTREMITIES: Normal inspection and palpation. No edema, clubbing or cyanosis. SKIN: Warm and dry without rashes. Normal inspection. MUSCULOSKELETAL: No cervical, thoracic, lumbar or midline bony tenderness. Normal inspection. NEURO: Alert, awake and oriented x3. Cranial nerves: II through XII grossly intact with exception of right facial weakness of upper motor neuron type. Speech and language: Normal with no dysarthria or dysphasia. Motor system: Tone and bulk: Normal: Strength: Moves all 4 extremities; No pronator drift noted. He has significant right foot drop with the dorsiflexion weakness. deep tendon reflexes: 2+ bilaterally symmetrical. Plantar reflex: Downgoing bilaterally. Sensory system: Intact to all modalities of sensation bilaterally. Coordination: Intact to [id number] and [id number] test bilaterally. No ataxia, no dysmetria, or dysdiadochokinesia noted. No intention tremors noted. Gait: Walked in the hallway using the walker with right foot drop. No signs of meningeal irritation noted. PSYCHIATRIC: Normal mood and affect. Objective Labs 05/31/25 05:35 05/31/25 05:35 Labs: Laboratory Results - last 24 hr 05/31/25 05:35 WBC 6.8 RBC 5.52 Hgb 16.5 H Hct 47.2 MCV 86 MCH 29.9 MCHC 35.0 RDW Std Deviation 41.8 Plt Count 165 Neut % (Auto) 72 Lymph % (Auto) 16 [place] % (Auto) 10 Eos % (Auto) 1 Baso % (Auto) 1 Neut # (Auto) 4.9 Lymph # (Auto) 1.1 [place] # (Auto) 0.7 Eos # (Auto) 0.1 Baso # (Auto) 0.0 Immature Gran # (Auto) 0.03 H Absolute Nucleated RBC 0.00 Immature Gran % 0 Nucleated RBC % 0 Sodium 140 Potassium 3.8 Chloride 106 Carbon Dioxide 22.0 Anion Gap 12 BUN 10 Creatinine 0.9 Estim Creat Clear Calc 63.3 eGFR > 60 BUN/Creatinine Ratio 11 L Glucose 98 Calculated Osmolality 278 Calcium 9.4 Corrected Calcium 9.6 Phosphorus 3.1 Magnesium 2.0 Total Bilirubin 0.9 D AST 11 ALT 8 L Alkaline Phosphatase 66 Total Protein 6.6 Albumin 3.8 Globulin 2.8 Albumin/Globulin Ratio 1.4 Assessment & Plan Assessment and plan (1) CVA (cerebral vascular accident): Status: Acute Assessment and plan: Repeat CT head did not show any acute infarction MRI could not be done as we could not find information on coil and the shunt, and their MRI compatibility. Continue with statin and blood pressure management. Continue with physical therapy as an outpatient, will benefit from AFO to prevent fall from significant right foot drop.
[2025-06-01] VITALS (7 sets, daily range): BP systolic 117–153; BP diastolic 71–93; PULSE 69–89; RESP 14–20; TEMP 36–36.4; O2SAT 93–97; BMI 19.9
[2025-06-01] MEDS: FAMOTIDINE 20 MG TABLET PO (08:58)
[2025-06-01] MEDS: LOSARTAN POTASSIUM 25 MG TABLET 50 MG PO (08:58)
[2025-06-01] MEDS: HEPARIN SOD INJ 5000 UNIT/ML VIAL SC (08:59)
[2025-06-01] MEDS: ASPIRIN EC 81 MG TABEC PO (08:59)
--- NOTE | 2025-06-01 09:08 | PC.SS ---
FURNACE CARETAKER spoke met with patient at bedside, patient was confused. FURNACE CARETAKER called patients nephew Cristofer to discuss d/c plan. FURNACE CARETAKER provided d/c options, Cristofer would like patient to d/c to SNF. FURNACE CARETAKER will submitted referral.
--- NOTE | 2025-06-01 09:46 | PC.SS ---
PRINCIPLE SOFTWARE ENGINEER spoke to patients nephew Cristofer about accepting facilities, Cristofer would like [facility]. PRINCIPLE SOFTWARE ENGINEER called Kath at [facility] who stated that they are able to accept patient today as he has met 3 midnight stay.
--- NOTE | 2025-06-01 10:33 | PD.RESDS ---
Planned Discharge Date 06/01/25 DS: Providers Provider Date of admission: 05/28/25 21:09 Primary care physician: Jonna Souza NP Admitting Provider: Wesotn Michael MD Attending Provider on Admission: Cliff Ferro MD Consults: 05/28/25 17:24 Consult to Neurology / Tele-Neurology Routine Comment: Consulting Provider: [facility] 05/28/25 21:18 Referral Physical Therapy Routine Comment: Physician Instructions: 05/28/25 21:19 Referral Speech Therapy Routine Comment: stroke rule out 05/29/25 08:12 Consult to Neurology / Tele-Neurology Routine Comment: stroke rule out less likely, more pre-syncope Consulting Provider: Rubens Clayton Attending Provider on DC: Cliff Ferro MD Discharging Provider: Aaron López, DS: Diagnosis Problem List Completed Was Problem List Reviewed/Reconciled?: Yes Hospital Course Hospital Course Hospital course: Reason for hospitalization:?CVA workup Summary: This patient is a 74 year old male with a history of HTN, HLD, history of 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 ED on 05/28 for right lower extremity weakness that started several days beforehand. The patient was admitted for CVA workup. The patient stated that he had a fall due to dizziness and tripping on cement, and since the fall, the patient has had right lower extremity weakness. In the ED, the patient had vitals significant for blood pressure of 171/102 and labs are significant for hemoglobin 17.2 and bilirubin 2.1. Teleneurologist was consulted at the time, who recommended CT head and CTA head/neck, both of which were negative for acute stroke. Teleneurology recommended aspirin 81 mg and starting statin as they wanted to empirically treat as an ischemic stroke, possibly to left hemisphere, however could not exclude possibility of recrudescence of the patient's chronic stroke symptoms. The patient was admitted for further workup. Echocardiogram with bubble study was negative for PFO. However her MRI brain could not be obtained as the make/model of the patient's RO[employer] LOCKSMITH shunt and aneurysm clip could not be obtained, even though patient had received an MRI at [facility] back in 2021. The patient was not sure who did those procedures nor where those procedures were done. Ultimately, in-house neurologist was consulted, who recommended repeat CT head to assess if there was in fact an acute infarction. The repeat CT head was negative, so neurology cleared the patient for discharge on statin and antihypertensives. On 06/01, the patient was stable and cleared for discharge to SNF. Discharge Recommendations: - Follow up with PCP within 1 week of discharge - Continue rest of medications as previously prescribed - Return to the ED or call EMS if symptoms return and/or worsen - Follow up with outpatient neurology within 2 weeks of dischage - Continue new antihypertensives of atorvastatin 40 mg nightly, amlodipine 5 mg daily, and losartan 50 mg daily If you don't have a PCP, you can make an appointment at the [facility]: [address] [place] [address] Hospital Diagnoses: #CVA #Pre-syncope #Vertigo #Mechanicall fall #RLE weakness #?History of seizures #Primary hypertension #HLD #Hyperbilirubinemia #Erythrocytosis Patient plan of care was discussed with attending physician Dr. Kasie López, PGY-1 Time Spent with Patient Time attestation: Total time spent providing and/or coordinating discharge services: 34 min Time spent: Greater than 30 minutes Home Health Home Health Referral Orders: 06/01/25 08:56 Home Health Referral Routine Reason For Exam: H/O CVA Home-Bound The patient must either because of illness or injury, need the aid of supportive devices such as crutches, canes, wheelchairs, and walkers; the use of special transportation; or the assistance of another person in order to leave their place of residence; OR have a condition such that leaving his or her home is medically contraindicated. In addition, the patient also meets the following criteria: patient is normally unable to leave the home and leaving home requires considerable taxing effort. Addendum to Home Health Certification Practitioner's Certification: I certify that the patient has been under my care in the hospital and the care of attending physician (see below). We had a [id number] encounter on (see date below). My clinical findings indicate that the patient is home bound per the above criteria and the Home Health Services noted in these orders are medically necessary. The primary reason for the madi-ph-[id number] encounter is related to the fact that the patient requires home health services. Date Certifying Ecxo-sf-Iurm Physician Encounter: 05/28/25 Physician's Name who will Assume Oversight for Services: Jonna Souza Physician's Phone No.who will Assume Oversight for Service: FISH HATCHERY SUPERINTENDENT - Community Resources: No PT to Evaluate: Yes PT to evaluate and provide a treatmnet plan to increase patient's mobility and strength. Wound Care: No IV Therapy: No RN Safety Evaluation: Yes RN to evaluate and create a plan of care that will produce positive outcomes. Palliative Treatment: No Palliative treatment and evaluate the need for hospice. Home Health Aide - Personal Care: No Home Health Aide to assist with any ADL's. Exam Vital Signs Temp Pulse Resp BP Pulse Ox O2 Del Method 97.2 F 81 18 143/74 H 97 Room Air 06/01/25 08:00 06/01/25 08:59 06/01/25 08:00 06/01/25 08:59 06/01/25 08:00 06/01/25 08:00 Narrative Exam Physical Exam: General: Alert, no acute distress. Skin: Warm, dry, intact. Head: Normocephalic, atraumatic. Eye: Normal conjunctiva, PERRL. Cardiovascular: Regular rate and rhythm, no murmur, +S1/S2. Respiratory: Lungs are clear to auscultation, respirations unlabored, no crackles, no wheezing. Gastrointestinal: Soft, nontender, non-distended. No guarding or rebound tenderness. Extremities: No edema, no cyanosis, no clubbing. 2+ radial pulse bilaterally, 2+ pedal pulse bilaterally. Neuro: RUE 5/5, LUE 5/5, RLE 4+/5, LLE 5/5. Conversant, moving all extremities. No overt cerebellar signs/incoordination. Psychiatric: Cooperative, appropriate affect. Discharge Plan Plan Patient Disposition: Xfer Skilled Nsg Fac (SNF) Patient condition on transfer: Stable Care Plan Goals: -Follow up with PCP within 1 week of discharge, if you do not have a primary care physician you can come see us at the [facility] by calling [phone] -Follow up with Neurologist Dr. Clayton within 2 weeks -Continue rest of medications as previously prescribed -Return to the ED or call EMS if symptoms return and/or worsen Prescriptions/Referrals Prescriptions/Med Rec: New atorvastatin 20 mg Tablet 40 mg PO HS Qty: 30 0RF amlodipine 5 mg Tablet 5 mg PO QDAY Qty: 30 0RF losartan 50 mg tablet 50 mg PO QDAY 30 Days Qty: 30 0RF Discontinued metoprolol succinate 50 mg tablet extended release 24 hr 50 mg PO QDAY gabapentin 600 mg tablet 600 mg PO BID No Action atorvastatin 40 mg tablet 40 mg PO QDAY Referrals: Jonna Souza NP [Primary Care Provider] - Rubens Clayton MD [Physician] - Patient/Caregiver Discharge Instructions Other Discharge Activity Instructions:: Follow up with PCP within 1 week of discharge, if you do not have a primary care physician you can come see us at the [facility] by calling [phone] -Follow up with Neurologist Dr. Clayton within 2 weeks -Continue rest of medications as previously prescribed -Return to the ED or call EMS if symptoms return and/or worsen Print Language: Albanian Stand Alone Forms: Karen Award Info., Patient Portal Info Letter Discharge Order Discharge Orders: Discharge (Routine); Ordered 06/01/25 Ordered By: Kath High Quality Discharge Quality Measures VTE prophylaxis Attestestation Attestation I attest that I was physically present for the evaluation, physical examination, lab and imaging review of the patient with the residents. I discussed the case with the residents and agree with the findings and plans of care as documented above. Cliff Ferro MD
--- NOTE | 2025-06-01 13:08 | PC.SS ---
TANK COOPER spoke to Cristofer who stated that he is unable to provide transportation today because he is feeling sick. TANK COOPER will contact [facility] to schedule transportation.
--- NOTE | 2025-06-01 13:25 | PC.SS ---
Addendum entered by YENI Nova 06/01/25 13:44: SUPERINTENDENT LAUNDRY scheduled transportation with [employer] ETA is 4:05PM reference # [id number]. SUPERINTENDENT LAUNDRY submitted PCS form via [employer]. SUPERINTENDENT LAUNDRY notified bedside nurse Taina. Original Note: SUPERINTENDENT LAUNDRY attempted to schedule transportation with [employer], was transferred 3 times.
--- NOTE | 2025-06-01 14:58 | PC.SS ---
ELEVATORS INSPECTOR called [facility] to request E[facility], [facility] been able to find a regional intermodal truck driver yet and stated that ELEVATORS INSPECTOR should call at 3:30 PM again. ELEVATORS INSPECTOR reminded [facility] staff to request for [facility]. [facility]
--- NOTE | 2025-06-01 15:34 | PC.SS ---
Rounding note: d/c today. AC/DC REWINDER contacted [employer] who stated no pedicab driver has been found yet.
--- NOTE | 2025-06-01 15:49 | PC.SS ---
SWITCHBOARD MANAGER spoke to [employer] at and staff stated there is still no wood pile driver operator assigned for the cotton picker operator and stated that ETA is still 1600. SWITCHBOARD MANAGER spoke to Deborah at [employer] and confirmed that [email or web address] has not reached out to them.
--- NOTE | 2025-06-01 16:50 | PC.SS ---
Ambulance transport scheduled for 05:30 pm. [facility] transport. RUSTIC FENCE BUILDER notified Med/Surg community development manager and SNF staff.
--- NOTE | 2025-06-01 17:04 | PC.NURSE ---
Report called to nurse Mittal at [facility] ETA [id number]
--- NOTE | 2025-06-01 23:43 | PD.VPROG1 ---
Telemedicine visit statement This visit was conducted with the use of phone was obtained on 06/01/25 . Documentation for date of: 06/01/25 Subjective Subjective Interval history: Patient is in MedSurg, no new symptoms reported. Continue to have right leg weakness with foot drop Virtual exam Vital Signs Temp Pulse Resp BP Pulse Ox O2 Del Method 97.5 F 82 20 117/73 96 Room Air 06/01/25 16:00 06/01/25 16:00 06/01/25 16:00 06/01/25 16:00 06/01/25 16:00 06/01/25 16:00 Objective Labs 05/31/25 05:35 05/31/25 05:35 Assessment & Plan Assessment 1) CVA (cerebral vascular accident): Ruled out Repeat CT head did not show any acute infarction MRI could not be done as we could not find information on coil and the shunt, and their MRI compatibility. Continue with statin and blood pressure management. Continue with physical therapy as an outpatient, will benefit from AFO to prevent fall from significant right foot drop.
--- NOTE | 2025-06-02 12:15 | PC.CC ---
Geovanna booked and accepted, SOC 06/02
== END 2025-06-01 17:46 | disposition skilled nursing facility (03) | DRG 65 ==
LOC: SERX 11:34 → SERHOLD 22:25 → S3NX 05-31 05:39
PROVIDERS: Emergency Medicine; Admitting Provider Student in an Organized Health Care Education/Training Program; Emergency Provider Emergency Medicine; PCP Nurse Practitioner Family; Visit Provider Student in an Organized Health Care Education/Training Program
DX: I63.9 Cerebral infarction, unspecified (principal); G81.91 Hemiplegia, unspecified affecting right dominant side; R17 Unspecified jaundice; I10 Essential (primary) hypertension; E78.5 Hyperlipidemia, unspecified; R29.810 Facial weakness; I44.7 Left bundle-branch block, unspecified; G93.89 Other specified disorders of brain; G40.909 Epilepsy, unspecified, not intractable, without status epilepticus; D75.1 Secondary polycythemia; Z98.2 Presence of cerebrospinal fluid drainage device; M21.371 Foot drop, right foot; R62.7 Adult failure to thrive; R29.706 NIHSS score 6; Z79.899 Other long term (current) drug therapy; W01.0XXA Fall on same level from slipping, tripping and stumbling without subsequent striking against object, initial encounter
CPT/HCPCS: 36415; 70450; 70496; 70498; 76705; 80053; 80061; 80307; 80320; 81001; 82248; 82607; 82746; 83036; 83735; 84100; 84443; 84484; 85025; 85610; 92610; 93005; 93225; 93306; 93970; 95816; 96361; 96374; 97162; 99284; A4649; J0360; J1644; J7030; Q9967; A9270; G0480